=== PATIENT | female | born 1945 | race Caucasian/White ===

== ENCOUNTER 2024-09-28 14:09 | Inpatient (IN) | payer OTHER, SELFPAY ==
[2024-09-28 09:06] VITALS: BP 123/62
--- NOTE | 2024-09-28 09:36 | ED.GENMED ---
History of Present Illness
General
Chief Complaint: Cold/Flu/URI Symptoms
Source: patient and spouse
Exam Limitations: none
Time Seen by Provider: 09/28/24 09:23
History of Present Illness
History of Present Illness:
79-year-old female has been ill for months. Cough congestion and some wheezing at times. Initially placed on steroids and nebulizers with improvement however symptoms then recurred. Was placed on a cephalosporin through urgent care that did not
improve symptoms. Eventually placed on azithromycin after her primary talk to pulmonary. Outpatient x-ray apparently showed pneumonia on September 18. However symptoms have not improved. No significant progression of symptoms but no improvement.
No pleuritic pain no hemoptysis
Past History
Past History
ED Past Medical History: HTN and Other (Rheumatoid arthritis)
ED Past Surgical History: Appendectomy
Review of Systems
Review of Systems
All Other Systems: Not applicable
Constitutional: Reports fatigue; Denies fever or chills
Respiratory: Denies hemoptysis
Cardiac: Denies chest pain
ABD/GI: Denies abdominal pain
Phy Exam
Physical Exam
Physical Exam:
GENERAL: Alert and oriented in no apparent distress
EYE: Orbits normal.
NECK: Supple, no significant adenopathy.
ENT: Pharynx without erythema
CARDIAC: Regular rate and rhythm without any obvious murmurs.
LUNGS: No respiratory distress but bilateral dry rales in the bases with mild expiratory wheeze
ABDOMEN: Soft, without focal tenderness or distention
NEUROLOGICAL: Alert and oriented , grossly non-focal
SKIN: Warm and dry, no rash or lesion, no discoloration, skin intact.
MUSCULOSKELETAL: No edema,no deformity.Good color
PSYCH: Normal and appropriate interaction.
Course
Orders/Labs/Results
Orders:
Orders
09/28/24 09:10
CR Chest - 2 Views Urgent
Comment:
Reason For Exam: respiratory distress
09/28/24 09:34
Electrocardiogram (*1) Stat
Reason for Study: Other
Other Reason for Exam: chest pain
EKG- Treatment ONCE
IV Insert/Care/Rem.- Treatment PRN
09/28/24 09:58
COVID-19 Antigen Urgent
Source: Nasal Swab
Complete Blood Count/With Diff Urgent
Comprehensive Metabolic Panel Urgent
NT-proBNP Urgent
INF RAPID [Influenza A+B Rapid Molecular] Urgent
RAMÓN Source: Nasal Swab
Specimen Description:
09/28/24 11:50
Potassium Chloride 10% Elixir [KCl Elixir] 40 meq PO NOW STA
09/28/24 12:14
RSV [Respiratory Syncytial Virus] Urgent
RAMÓN Source: Nasalpharynx
Specimen Description:
Date Specimen was Collected: 09/28/24
Time Specimen was Collected: 12:12
09/28/24 12:45
IV Insert/Care/Rem.- Treatment PRN
Azithromycin 500 mg/250 ml [Zithromax Infusion] 500 mg in 250 ml IV NOW
CefTRIAXone [Rocephin] 1,000 mg IV NOW STA
09/28/24 13:22
Admit/Transfer Patient As Directed
Co-Sign Provider:
Level of Care: Inpatient admission
Assign to:: Medical/Surgical
Physician / Group: [facility]
Diagnosis: Multifocal Pneumonia
Reason for Hospitalization: IV abx
Expected length of stay greater than two midnights?: Yes
ELOS- Estimated Length of Stay in days: 3
I certify the patient meets the requirements for IP care: Yes
Legionella Urinary Antigen Urgent
RAMÓN Source: Urine
Specimen Description:
Strep pneumoniae Antigen Urgent
RAMÓN Source: Urine
Specimen Description:
PRN Pain Medication Management As Directed
May give lesser potent ordered pain med per pt: Yes
preference::
Protocol:: Medication orders for pain may be administered in a
manner that supports deferring to patient preference
when the pt is:
- Requesting an ordered lesser potent pain medication.
Least to most potent pain medications are defined
as: acetaminophen < NSAID < tramadol < opioids
(morphine, oxycodone, hydromorphone).
- Requesting a lesser dose of the same medication IF
ORDERED.
- Requesting a less intrusive route of administration
if both routes are prescribed by the provider (PO <
IV).
09/28/24 13:27
Code Status As Directed
Resuscitation Status: Full Code
09/28/24 13:29
MRSA Screen Routine
RAMÓN Source: Nose
Specimen Description:
Abnormal Lab Results
09/28/24
09:58
Hct 35.9 L %
(37.0-47.0)
Plt Count 458 H 10^3/uL
(130-400)
Absolute Neuts (auto) 7.7 H 10^3/uL
(1.4-6.5)
Absolute Lymphs (auto) 0.8 L 10^3/uL
(1.2-3.4)
Absolute Monos (auto) 1.5 H 10^3/uL
(0.1-0.6)
Neutrophils % 76.0 H %
(42.2-75.2)
Lymphocytes % 7.6 L %
(20.5-51.1)
Monocytes % 14.6 H %
(1.7-9.3)
Sodium 130 L mmol/L
(135-145)
Potassium 3.0 L mmol/L
(3.5-5.1)
Chloride 95 L mmol/L
(98-107)
Creatinine 0.5 L mg/dL
(0.6-1.0)
Glucose 116 H mg/dl
(70-99)
Calcium 7.6 L mg/dl
(8.4-10.2)
Total Protein 5.8 L g/dl
(6.3-8.2)
Albumin 3.3 L g/dl
(3.5-5.0)
09/28/24 09:58
09/28/24 09:58
Vital Signs
Initial and Last Documented VS:
Initial Vital Signs
Temp Pulse Resp BP Pulse Ox
100 F 92 18 123/62 95
09/28/24 09:06 09/28/24 09:06 09/28/24 09:06 09/28/24 09:06 09/28/24 09:06
Last Documented Vital Signs
Temp Pulse Resp BP Pulse Ox
98.4 F 82 18 149/80 93
09/28/24 13:25 09/28/24 13:25 09/28/24 13:25 09/28/24 13:25 09/28/24 13:25
MDM/Problems Addressed
Differential Diagnosis Includes:
79-year-old female ongoing upper respiratory symptoms. Clinically stable and nontoxic. She does have some rales in the bases although doubt primary CHF issues. Workup in [facility] progress included RSV COVID flu chest x-ray labs.
*Radiology
Radiology exam reviewed: preliminary read by ED provider (Multifocal pneumonia) and radiology read reviewed (Multifocal pneumonia)
*Pulse Oximetry
Patient hypoxic: no
*Critical Care Note
Total Time (30-74mins, 75-104mins- exclusive of procedures): Not Applicable
ED Attending Note
-
Portions of this chart may have been created with voice recognition software.� Occasional wrong word or��sound alike� substitutions may have occurred due to the inherent limitations of voice recognition software.
Discharge Plan
Departure
Patient Disposition: Admit
Date of Disposition: 09/28/24
Time of Disposition: 12:46
Presentation/result/management discussed w/ accepting MD/DO: Hospitalist
Discharge Problem:
Multifocal pneumonia, Failed outpatient management, Immunosuppressed
Interventions
Interventions:
*Risk Screen - Suicide Last Done: 09/28/24 09:06
*General Assessment Last Done: 09/28/24 10:04
*Neglect/Abuse Screening Last Done: 09/28/24 09:06
*ED COVID-19 Vaccine History Last Done: 09/28/24 10:04
ED- Pulmonary Assessment Last Done: 09/28/24 10:04
[2024-09-28 10:06] LABS: % Basophils 0.3 % (0-2); % Eosinophils 1.1 % (0-6); % Immature Granulocytes 0.4 % (0-0.5); % Lymphocytes 7.6 % (20.5-51.1); % Monocytes 14.6 % (1.7-9.3); Absolute Eosinophils 0.1 10^3/uL (0-0.7); Absolute Lymphocytes 0.8 10^3/uL (1.2-3.4); Absolute Monocytes 1.5 10^3/uL (0.1-0.6); Absolute Neutrophils 7.7 10^3/uL (1.4-6.5); Hematocrit 35.9 % (37.0-47.0); Hemoglobin 12.1 g/dL (12.0-16.0); Mean Corp Hgb Conc. 33.7 g/dL (33.0-37.0); Mean Corpuscular Hgb 27.4 pg (27.0-31.0); Mean Corpuscular Volume 81.4 fL (81.0-99.0); Mean Platelet Volume 8.7 fL (7.4-10.4); Nucleated Red Blood Cells % 0 %; Platelet Count 458 10^3/uL (130-400); Red Blood Cell Count 4.41 10^6/uL (4.20-5.40); Red Cell Dist. Width 13.6 % (11.5-14.5); White Blood Cell Count 10.1 10^3/uL (4.8-10.8)
[2024-09-28 10:23] LABS: ALT (SGPT) 17 U/L (0-35); AST (SGOT) 24 U/L (14-36); Albumin 3.3 g/dl (3.5-5.0); Alkaline Phosphatase 78 U/L (38-126); Blood Urea Nitrogen 9 mg/dl (7-17); Calcium 7.6 mg/dl (8.4-10.2); Carbon Dioxide 26 mmol/L (22-30); Chloride 95 mmol/L (98-107); Glucose 116 mg/dl (70-99); Sodium 130 mmol/L (135-145); Total Bilirubin 0.5 mg/dl (0.2-1.3); Total Protein 5.8 g/dl (6.3-8.2); eGFR > 60.00
[2024-09-28 10:24] LABS: COVID-19 Antigen Negative (Negative)
[2024-09-28 10:30] LABS: NT-proBNP 622 pg/ml
[2024-09-28] MEDS: KCL ELIXIR 40 MEQ PO (12:11)
--- NOTE | 2024-09-28 12:57 | HPS.HSE ---
Family Physician
-
Family Physician: Kimmie Hagen
Chief Complaint
-
Cough and Weakness
History of Present Illness
Patient is a 79-year-old female past medical history of rheumatoid arthritis, hypertension and lower extremity edema who presents with cough and generalized weakness/lethargy. Patient reports she started feeling poorly about 4 weeks ago. She notes
persistent dry cough. She reports persistent generalized weakness and lethargy, and very poor energy levels. Patient states she was given a Medrol Dosepak should help her symptoms for short time but then they recurred. She was given samples of
Trelegy which she states has helped her cough. She completed a course of azithromycin yesterday, but states this did not seem to help her symptoms. It appears she also took a few days course each of cephalexin and ciprofloxacin but stopped due to
adverse effects. She reports persistent low-grade fevers of around 100�F as well as night sweats.
Medical History
Past Medical History
Past Medical History: Reports Other
Additional Past Medical History:
Rheumatoid Arthritis
Essential Hypertension
Chronic Lower Extremity Edema
Past Surgical History: Reports Other
Additional Past Surgical History:
Appendectomy
Social History
Tobacco: Non-smoker
Alcohol: Occasional
Family History
Family History: Not pertinent
Allergies / Home Medications
Allergies reflects when Allergies were last updated in [facility].
Home Medications with original date entered in [facility]
Allergy/Medication List:
Allergies
Allergy/AdvReac Type Severity Reaction Status Date / Time
celecoxib [From Celebrex] Allergy Intermediate Shortness Verified 09/28/24 09:06
of Breath
diphenhydramine Allergy Unknown Verified 09/28/24 09:06
[From Benadryl]
Home Medications
amlodipine 5 mg tablet (Norvasc) 5 mg PO BID 09/28/24
ezetimibe 10 mg tablet (Zetia) 10 mg PO DAILY 09/28/24
fluticasone fur. 100 mcg-umeclid 62.5 mcg-vilant 25 mcg inhalat.powder (Trelegy Ellipta) 1 inh inhalation R DAILYPRN PRN sob 09/28/24
folic acid 1 mg tablet 2 mg PO DAILY 09/28/24
furosemide 20 mg tablet (Lasix) 40 mg PO DAILY 09/28/24
methotrexate sodium 2.5 mg tablet 10 mg PO MO 09/28/24
methylprednisolone 4 mg tablet 4 mg PO QPM 09/28/24
metoprolol succinate 25 mg tablet,extended release 24 hr (Toprol XL) 75 mg PO DAILY 09/28/24
omeprazole 20 mg tablet,delayed release 40 mg PO DAILY 09/28/24
Review of Systems
-
A 12 point ROS was completed and negative except as noted: Yes
Constitutional: Reports Fever, Fatigue and Night Sweats
Respiratory: Reports See HPI
Cardiac: Denies Chest Pain or Palpitations
Physical Exam
Vital Signs
Vital Signs
Temp Pulse Resp BP Pulse Ox
100 F 92 18 123/62 95
09/28/24 09:06 09/28/24 09:06 09/28/24 09:06 09/28/24 09:06 09/28/24 09:06
Physical Exam
General: Comfortable and Conversant
HEENT: Anicteric and Moist mucous membranes
Respiratory: Rales (Bilateral bases - Right greater than Left) and Other (Coarse breath sounds)
Cardiac: S1/S2 and Regular Rhythm
GI: Soft and Non Tender
Musculoskeletal: No Clubbing, No Cyanosis and Other (Chronic lower extremity edema, left greater than right which patient reports is chronic)
Skin: Warm and Dry
Neuro: Awake, Alert, Oriented and Nonfocal/grossly intact
Psych: Calm
Laboratory Results
-
09/28/24 09:58
09/28/24 09:58
Laboratory Results
Total Bilirubin 0.5 mg/dl (0.2-1.3) 09/28/24 09:58
AST 24 U/L (14-36) 09/28/24 09:58
ALT 17 U/L (0-35) 09/28/24 09:58
Alkaline Phosphatase 78 U/L (38-126) 09/28/24 09:58
Data Reviewed
-
Diagnostic Radiology: Report Reviewed by me
Lab Data: Labs Reviewed by me
Impression/Plan
-
Pertinent Cough / Weakness and Lethargy - possibly persistent multi-focal bacterial pneumonia vs interstitial pneumonitis
-Consult Pulmonary
-Continue ceftriaxone and doxycycline
-Continue Pulmicort BID and DuoNeb PRN as patient reports improvement with Trelegy as outpatient
-Continue Mucinex
-Check MRSA screen, Strep and Legionella antigen
Hyponatremia / Hypokalemia, likely related to poor oral intake
-Continue IVFs
-Replace potassium
-Recheck labs in AM
Rheumatoid Arthritis
-Continue methylprednisolone as prior to admission
-Patient maintained on methotrexate but as not taken for several weeks
Essential Hypertension
-Continue metoprolol and amlodipine with hold parameters
Chronic Lower Ext Edema
-Patient has not taken Lasix for several weeks
DVT proph: Lovenox
Code Status: Full Code
--- NOTE | 2024-09-28 13:10 | PHANOTE ---
med rec note- patient stated she takes her medication when she feels like it and how she feels, it has been months and she check her blood pressure before take Toprol xl dose.
[2024-09-28 13:25] VITALS: BP 149/80
[2024-09-28] MEDS: ROCEPHIN 1000 MG IV (13:33)
[2024-09-28] MEDS: ZITHROMAX INFUSION 250 IV (13:33)
--- NOTE | 2024-09-28 14:17 | W.PN.UPDATE ---
Update Note
Progress Note Update
79-year-old female past medical history of hypertension, rheumatoid arthritis on methotrexate, hyperlipidemia, chronic lower extremity edema presenting with cough, congestion and wheezing and fever since early September.� She was treated with Trelegy,
Medrol Dosepak, then azithromycin, and uncompleted short days of Keflex and Cipro due to diarrhea.
Chest x-ray shows diffuse interstitial opacification with superimposed patchy airspace opacities in the right mid and upper lung particularly.� Likely multifocal atypical pneumonia.
COVID and influenza and RSV negative.
Labs show hypokalemia.
Concern for persistent bacterial pneumonia, versus interstitial pneumonitis.� Treat with ceftriaxone/doxycycline.� Check strep antigen, Legionella.� Pulmonary consulted.� Could potentially benefit from further steroids.
Hypokalemia could be from recent diarrhea/decreased poor intake.�
Replete potassium.
[2024-09-28 18:54] VITALS: BMI 37.3
[2024-09-28 18:55] VITALS: BP 133/60; BMI 37.3
[2024-09-28] MEDS: DUONEB 3 ML INH (19:05)
[2024-09-28] MEDS: PULMICORT 0.5 MG INH (19:05)
[2024-09-28] MEDS: KCL 520 MEQ IV (20:32)
[2024-09-28] MEDS: MEDROL 4 MG PO (20:40)
[2024-09-28] MEDS: LOVENOX 40 MG SC (20:40)
[2024-09-28] MEDS: NORVASC 5 MG PO (20:41)
[2024-09-28] MEDS: MUCINEX 600 MG PO (20:41)
[2024-09-28] MEDS: VIBRAMYCIN 100 MG PO (20:42)
[2024-09-28] MEDS: TYLENOL 650 MG PO (22:57)
[2024-09-28] MEDS: ANESTHETIC LOZENGE 1 LOZENGE PO (22:57)
[2024-09-28 23:51] VITALS: BP 129/61
[2024-09-29] MEDS: PULMICORT 0.5 MG INH ×2 (05:59→20:45)
[2024-09-29 07:46] VITALS: BP 120/55
[2024-09-29 07:49] LABS: Hematocrit 36.6 % (37.0-47.0); Hemoglobin 12.2 g/dL (12.0-16.0); Mean Corp Hgb Conc. 33.3 g/dL (33.0-37.0); Mean Corpuscular Hgb 27.5 pg (27.0-31.0); Mean Corpuscular Volume 82.4 fL (81.0-99.0); Platelet Count 492 10^3/uL (130-400); Red Blood Cell Count 4.44 10^6/uL (4.20-5.40); Red Cell Dist. Width 13.9 % (11.5-14.5); White Blood Cell Count 8.8 10^3/uL (4.8-10.8)
[2024-09-29 08:14] LABS: Blood Urea Nitrogen 8 mg/dl (7-17); Calcium 8.2 mg/dl (8.4-10.2); Carbon Dioxide 25 mmol/L (22-30); Chloride 99 mmol/L (98-107); Estimated Creatinine Clearance 90 ml/min; Glucose 105 mg/dl (70-99); Potassium 4.3 mmol/L (3.5-5.1); Sodium 133 mmol/L (135-145); eGFR > 60.00
[2024-09-29 08:48] LABS: TSH Reflex To Free T4 0.51 uIU/ml (0.47-4.68)
[2024-09-29] MEDS: TOPROL XL 75 MG PO (08:55)
[2024-09-29] MEDS: FOLVITE 2 MG PO (08:56)
[2024-09-29] MEDS: VIBRAMYCIN 100 MG PO ×2 (08:56→20:52)
[2024-09-29] MEDS: MUCINEX 600 MG PO ×2 (08:56→20:53)
[2024-09-29] MEDS: PROTONIX 40 MG PO (08:56)
[2024-09-29] MEDS: ZETIA 10 MG PO (08:56)
[2024-09-29] MEDS: NORVASC 5 MG PO ×2 (08:56→20:53)
--- NOTE | 2024-09-29 09:58 | W.PN.HOSP.TC ---
Today's Communication/Plan
-
IV antibiotics. Steroids. Pulmonary eval
Assessment / Plan
Assessment / Plan
Physical Exam
General: Acutely ill
HEENT: Anicteric and Moist mucous membranes
Respiratory: Rales (Bilateral bases - Right greater than Left) and Other (Coarse breath sounds)
Cardiac: S1/S2 and Regular Rhythm
GI: Soft and Non Tender
Musculoskeletal: No Clubbing, No Cyanosis and Other (Chronic lower extremity edema, left greater than right which patient reports is chronic)
Skin: Warm and Dry
Neuro: Awake, Alert, Oriented and Nonfocal/grossly intact
Psych: Calm
A/P:
Pertinent Cough / Weakness and Lethargy - possibly persistent multi-focal bacterial pneumonia vs interstitial pneumonitis
-Consult Pulmonary pending
-Continue ceftriaxone and doxycycline
-Continue Pulmicort BID and DuoNeb PRN as patient reports improvement with Trelegy as outpatient
-Continue Mucinex
-Check MRSA screen, COVID-19, strep and Legionella antigen which were all negative
-Discussed with attending RN
-Discussed with primary care provider, Dr. Kimmie Hagen ([phone])
-Discussed with over the phone today
-PT OT eval
Hyponatremia / Hypokalemia, likely related to poor oral intake
-Continue IVFs
-Replace potassium
-Recheck labs in AM
Rheumatoid Arthritis
-Continue methylprednisolone as prior to admission
-Patient maintained on methotrexate but as not taken for several weeks
Essential Hypertension
-Continue metoprolol and amlodipine with hold parameters
Chronic Lower Ext Edema
-Patient has not taken Lasix for several weeks
DVT proph: Lovenox
Code Status: Full Code
Total time spent on today's encounter was 52 minutes which included time spent in counseling the patient/family regarding diagnosis and treatment plan as listed above, goals of care, and symptom management. Case was discussed with nursing staff,
specialists, and care coordinators/case management. All labs and imaging personally reviewed by me. Remainder the time spent in detailed review of previous records, lab data, imaging, and other medical provider documentation.
Anticipated Discharge: 24 - 48 hours
Subjective/Interval History
-
Date of Service: September 29, 2024
Patient feels better today, afebrile today
Objective Data
-
Labs:
Laboratory Results
09/29/24
06:29
WBC 8.8
Hgb 12.2
Hct 36.6 L
Plt Count 492 H
Sodium 133 L
Potassium 4.3 D
Chloride 99
Carbon Dioxide 25
BUN 8
Creatinine 0.4 L
Glucose 105 H
Calcium 8.2 L
Vital Signs:
Vital Signs
Temp Pulse Resp BP Pulse Ox
97.6 F 77 20 120/55 95
09/29/24 07:46 09/29/24 08:55 09/29/24 07:46 09/29/24 08:55 09/29/24 07:46
I&O
09/28/24 09/29/24 09/30/24
06:59 06:59 06:59
Intake Total 0 / 0
Output Total 400 / 400
Balance -400 / -400
[2024-09-29 11:14] VITALS: BMI 37.3
[2024-09-29 11:32] LABS: Glycohemoglobin (HgbA1c) 6.1 % (4.0-5.6)
[2024-09-29 12:25] VITALS: BMI 37.3
[2024-09-29 12:40] VITALS: BP 126/61; PULSE 72; O2SAT 95
[2024-09-29 12:58] VITALS: BP 126/61; PULSE 72; O2SAT 95
[2024-09-29] MEDS: STERILE WATER FOR INJECTION 10 ML IV (13:05)
[2024-09-29] MEDS: ROCEPHIN 1000 MG IV (13:06)
--- NOTE | 2024-09-29 15:16 | CON.PUL ---
Consultation
Consultation Request
Date/Time Consultation Requested: 09/29/2024
Date/Time Consultation Performed: 09/29/2024
Requesting Provider: Dr. Herrmann
Performing Provider: Dr. Keyshawn Duenas
Reason for Consultation: Multifocal pneumonia/hypoxemia
Medical History
-
History of Present Illness:
79-year-old female with past medical history significant for rheumatoid arthritis, hypertension, chronic lower extremity edema who presents with cough, generalized weakness and lethargy. Patient has been not feeling well for the last 4 weeks.
Reports a persistent cough and intermittent phlegm production.
Energy levels are significantly diminished. She feels fatigued all the time.
She was given steroids in the outpatient with partial improvement.
She was given an inhaler that helped her cough. Completed a course of azithromycin the day prior admission. Reports low-grade fevers and night sweats.
Chest x-ray showed possible multifocal pneumonia.
We were consulted on 09/29/2024 for further evaluation.
In further evaluation patient reports being on rituximab infusions every 3 to 4 months. Last 1 was in 05/2024. Methotrexate for many years currently on hold since she got sick. Also as needed Medrol that she takes on and off.
She reports being in contact with her granddaughter and grandson who had RSV before getting sick.
Evaluated with a chest x-ray on 09/18/2024 at [facility] and showed right upper lobe infiltrate. Completed a course of azithromycin.
Denies fevers, chills, rash, diarrhea or abdominal pain. Main complaint is feeling significantly fatigued.
Past Medical History
Past Medical History: Other (See assessment and plan)
Social History
Tobacco: Non-smoker
Alcohol: None
Drug: None
Family History
Family History: Reviewed & Not Pertinent
Allergies / Home Medications
Allergies
Allergy/AdvReac Type Severity Reaction Status Date / Time
celecoxib [From Celebrex] Allergy Shortness Verified 09/28/24 18:54
of Breath
diphenhydramine Allergy twitching Verified 09/28/24 18:54
[From Benadryl]
Home Medications
�Medication �Instructions �Recorded �Confirmed �Last Taken �Type
amlodipine 5 mg tablet (Norvasc) 5 mg PO BID Blood Pressure 09/28/24 09/28/24 09/27/24 History
ezetimibe 10 mg tablet (Zetia) 10 mg PO DAILY High Cholesterol 09/28/24 09/28/24 Unknown History
fluticasone fur. 100 mcg-umeclid 1 inh inhalation R DAILYPRN PRN sob 09/28/24 09/28/24 09/27/24 History
62.5 mcg-vilant 25 mcg
inhalat.powder (Trelegy Ellipta)
folic acid 1 mg tablet 2 mg PO DAILY Supplement 09/28/24 09/28/24 Unknown History
furosemide 20 mg tablet (Lasix) 40 mg PO DAILY Fluid 09/28/24 09/28/24 Unknown History
Retention/Swelling
methotrexate sodium 2.5 mg tablet 10 mg PO MO rheumatoid arthritis 09/28/24 09/28/24 09/07/24 History
methylprednisolone 4 mg tablet 4 mg PO QPM Anti-Inflammatory 09/28/24 09/28/24 30 Days Ago History
~08/29/24
metoprolol succinate 25 mg 75 mg PO DAILY Blood Pressure 09/28/24 09/28/24 09/27/24 History
tablet,extended release 24 hr 25 mg
(Toprol XL)
omeprazole 20 mg tablet,delayed 40 mg PO DAILY Gastrointestinal 09/28/24 09/28/24 09/27/24 History
release Issue
Review of Systems
-
History Source: Patient
All other systems: Negative unless noted
Vitals / Labs / Diagnostic Testing
Vital Signs
Temp Pulse Resp BP Pulse Ox
97.6 F 77 20 120/55 95
09/29/24 07:46 09/29/24 08:55 09/29/24 07:46 09/29/24 08:55 09/29/24 07:46
Lab Data
09/29/24 06:29
09/29/24 06:29
Microbiology
09/29/24 01:22 Urine Legionella Urinary Antigen - Final
Negative for Legionella pneumophila Serogroup 1 antigen.
A negative result does not rule out the possiblity of
Legionella infection due to other serogroups or species of
Legionella. Clinical correlation is recommended.
09/29/24 01:22 Urine Streptococcus pneumoniae Antigen (M - Final
Negative for Streptococcus pneumoniae antigen.
A negative result does not exclude infection with
Streptococcus pneumoniae. Clinical correlation is
recommended.
09/28/24 12:14 Nasalpharynx Respiratory Syncytial Virus Ag - Final
Negative for Respiratory Syncytial Virus.
A false negative result may be obtained with a specimen
collected early in the acute phase. If symptoms persist, a
new specimen should be tested.
09/28/24 09:58 Nasal Swab Influenza Types A & B (ELBA) - Final
Negative for Influenza A & B, NAAT
Negative results must be combined with clinical observations
and patient history.
Nucleic Acid Amplification test (NAAT)performed on the
[employer] platform.
Diagnostic Testing:
Physical Exam
-
HEENT: Normocephalic
Cardiovascular: S1/S2
Respiratory: Non-Labored Respirations
GI: Soft and Non Distended
Neurology: Awake, Alert, AO x 3 and No Motor Deficits
Skin: Warm
General: Comfortable
Assessment
-
79-year-old woman with past medical history noted, comes with 4-week history of lethargy cough, shortness of breath, not feeling well. Received steroids and a course of antibiotics with partial improvement. Symptoms were progressive.Not requiring
oxygen supplementation. Patient does report exposure to RSV from granddaughter and son-in-law prior to getting sick. We were consulted on 09/29/2024 for abnormal chest x-ray evaluation.
Acute respiratory insufficiency
Abnormal chest x-ray: Diffuse interstitial opacification with patchy airspace opacity more pronounced in the right mid and upper lung liu.
Normal proBNP
Negative COVID
Negative influenza, negative RSV
Negative Legionella and streptococcal antibody
Low-grade fevers-no leukocytosis
Hyponatremia
Conditions present prior admission:
Rheumatoid arthritis on methotrexate-
On methotrexate/Rituxan infusions last on 05/2024/taking as needed Medrol as needed throughout the years.
Chronic lower extremity edema
Hypertension
Obesity
Never smoker
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
Patient reports a subacute protracted course for the last 4 weeks. Exposure to RSV from granddaughter and son-in-law before getting sick.
Had an x-ray at [facility] 09/18/2024: Report reviewed from her phone and showed right upper lobe infiltrate which was new.
Her main complaint is feeling very fatigue and tired.
-
Completed a Medrol Dosepak and a course of azithromycin.
Did report some partial improvement with the steroids.
Main complaint is cough and significant fatigue.
Not requiring supplemental oxygen
Does not appear toxic, able to speak in full sentences
Lung exam with bilateral crackles [facility] up. Not bronchospastic.
Afebrile without leukocytosis
Not producing significant amount of sputum.
Microbiology evaluation so far is negative.
-
With history of rheumatoid arthritis-has been on methotrexate for some time but has not taken for several weeks rule out either opportunistic infection versus connective tissue disease associated pulmonary involvement.
Patient is on Rituxan, methotrexate that she has not been taking since she got sick. She also takes Medrol low-dose for years on as needed basis. She gets a dexamethasone infusion with every Rituxan infusion. Last Rituxan infusion was 05/2024.
-
Obtain CT chest without IV contrast
Will obtain sedimentation rate and CRP.
Obtain urinalysis rule out proteinuria.
So far there is no evidence for other organ involvement: Normal renal function, normal LFTs, no evidence for anemia .
Completing Medrol Dosepak that she was taking in the outpatient setting. Currently on low-dose Medrol for rheumatoid arthritis.
Methotrexate on hold
-
With significant fatigue and electrolyte abnormalities may need to consider iatrogenic adrenal insufficiency.
Will obtain a.m. cortisol-unclear how accurate this will be.
May need to consider given her higher doses of steroids if there is no improvement on her fatigue.
-
Continue current antibiotics for now
Follow cultures
-
Will follow
[2024-09-29 15:55] VITALS: BP 136/54
[2024-09-29 16:33] LABS: Erythrocyte Sed Rate 72 mm/hour (0-20)
[2024-09-29] MEDS: LOVENOX 40 MG SC (17:15)
[2024-09-29] MEDS: MEDROL 4 MG PO (17:15)
[2024-09-29] MEDS: ANESTHETIC LOZENGE 1 LOZENGE PO (20:53)
[2024-09-29] MEDS: TYLENOL 650 MG PO (20:53)
[2024-09-29 23:55] VITALS: BP 126/55
[2024-09-30 06:00] VITALS: BMI 37.0
[2024-09-30] MEDS: PULMICORT 0.5 MG INH ×2 (07:06→19:18)
[2024-09-30 07:30] VITALS: BP 140/57
[2024-09-30 07:32] LABS: % Basophils 0.2 % (0-2); % Eosinophils 0.4 % (0-6); % Immature Granulocytes 0.5 % (0-0.5); % Lymphocytes 11.9 % (20.5-51.1); % Monocytes 10.2 % (1.7-9.3); % Neutrophils 76.8 % (42.2-75.2); Absolute Immature Granulocytes 0.1 10^3/uL (0-0.05); Absolute Lymphocytes 1.1 10^3/uL (1.2-3.4); Absolute Neutrophils 7.2 10^3/uL (1.4-6.5); Hematocrit 36.4 % (37.0-47.0); Hemoglobin 11.9 g/dL (12.0-16.0); Mean Corp Hgb Conc. 32.7 g/dL (33.0-37.0); Mean Corpuscular Hgb 26.8 pg (27.0-31.0); Mean Platelet Volume 8.7 fL (7.4-10.4); Nucleated Red Blood Cells % 0 %; Platelet Count 512 10^3/uL (130-400); Red Blood Cell Count 4.44 10^6/uL (4.20-5.40); Red Cell Dist. Width 13.7 % (11.5-14.5); White Blood Cell Count 9.4 10^3/uL (4.8-10.8)
[2024-09-30 07:49] LABS: Blood Urea Nitrogen 8 mg/dl (7-17); Calcium 8.3 mg/dl (8.4-10.2); Carbon Dioxide 27 mmol/L (22-30); Chloride 97 mmol/L (98-107); Estimated Creatinine Clearance 90 ml/min; Glucose 91 mg/dl (70-99); Potassium 3.8 mmol/L (3.5-5.1); Sodium 134 mmol/L (135-145); eGFR > 60.00
[2024-09-30 08:20] LABS: Cortisol, Random 3.7 ug/dl
[2024-09-30] MEDS: PROTONIX 40 MG PO (08:49)
[2024-09-30] MEDS: NORVASC 5 MG PO ×2 (08:50→19:52)
[2024-09-30] MEDS: MUCINEX 600 MG PO ×2 (08:50→19:52)
[2024-09-30] MEDS: VIBRAMYCIN 100 MG PO ×2 (08:51→19:52)
[2024-09-30] MEDS: TOPROL XL 75 MG PO (08:51)
[2024-09-30] MEDS: ZETIA 10 MG PO (08:51)
--- NOTE | 2024-09-30 09:07 | W.PN.HOSP.TC ---
Today's Communication/Plan
-
IV steroids. IV antibiotics.
Assessment / Plan
Assessment / Plan
Physical Exam
General: Acutely ill
HEENT: Anicteric and Moist mucous membranes
Respiratory: Rales (Bilateral bases - Right greater than Left) and Other (Coarse breath sounds), no wheezes.
Cardiac: S1/S2 and Regular Rhythm
GI: Soft and Non Tender
Musculoskeletal: No Clubbing, No Cyanosis and Other (Chronic lower extremity edema, left greater than right which patient reports is chronic)
Skin: Warm and Dry
Neuro: Awake, Alert, Oriented and Nonfocal/grossly intact
Psych: Calm
A/P:
Acute hypoxic respiratory insufficiency:
Multifactorial etiology as below
Antibiotics
Steroids
Oxygen
Pulm consult appreciated-discussed with pulm today on 09/30
Discussed with at bedside today
Interstitial pneumonia, concerns for connective tissue disorder related and or CAP (community acquired pneumonia)-and if worsens might need to consider broaden to pseudomonas and other opportunistic organisms:
Cont Rocephin Doxy
Inflammatory markers elevated
Cont steroids but given low cortisol level start higher IV doses today
Follow culture
Follow WBC and Temp curve
Checking MICHAELA, ANCA antibody, complements, and UA per Pulm
Might need bronchoscopy
Adrenal insufficiency:
Cortisol level in the 3 range associated with fatigue and electrolytes abnormalities
Start stress doses IV steroids
Hyponatremia:
Likely related to decreased oral solute intake but could be related to adrenal insuf
Monitor trend
Hypokalemia:
Replace and trend
Rheumatoid arthritis:
On steroids
Has not been taking methotrexate or Rituxan infusions [employer]
HTN:
cont anti-htn meds
Hyperlipidemia:
Cont Zetia
Chronic LE edema:
Holding diuretics
Might consider echo and Doppler LE
DVT prophylaxis:
Lovenox SQ
Code status:
Full code
Total time spent on today's encounter was 52 minutes which included time spent in counseling the patient/family regarding diagnosis and treatment plan as listed above, goals of care, and symptom management. Case was discussed with nursing staff,
specialists, and care coordinators/case management. All labs and imaging personally reviewed by me. Remainder the time spent in detailed review of previous records, lab data, imaging, and other medical provider documentation.
Anticipated Discharge: > 48 hours
Subjective/Interval History
-
Date of Service: September 30, 2024
Patient remains very tired, still cough and sob.
Objective Data
-
Labs:
Laboratory Results
09/30/24
06:42
WBC 9.4
Hgb 11.9 L
Hct 36.4 L
Plt Count 512 H
Sodium 134 L
Potassium 3.8
Chloride 97 L
Carbon Dioxide 27
BUN 8
Creatinine 0.4 L
Glucose 91
Calcium 8.3 L
Vital Signs:
Vital Signs
Temp Pulse Resp BP Pulse Ox
100.0 F 82 20 126/55 95
09/30/24 07:30 09/30/24 08:51 09/30/24 07:30 09/30/24 08:51 09/30/24 07:30
I&O
09/29/24 09/30/24 10/01/24
06:59 06:59 06:59
Intake Total 0 / 0 780 / 780
Output Total 400 / 400
Balance -400 / -400 780 / 780
[2024-09-30] MEDS: FOLVITE 2 MG PO (10:25)
--- NOTE | 2024-09-30 10:25 | CM ---
SKYLER met with Sangeetha at bedside to complete IA. She lives with her in a 1st floor condo with 6 entry steps (3+2+1). MANAGER SOCIAL Sangeetha has been (I) with rollator and/or hurrycane. Electric scooter is used outside the home.
Household duties are shared between Sangeetha and her .
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
Plan: Watch for VN needs which are recommended by PT.
[2024-09-30] MEDS: ANESTHETIC LOZENGE 1 LOZENGE PO ×2 (11:07→19:53)
--- NOTE | 2024-09-30 12:39 | W.PN.PUL3 ---
Today's Communication / Plan
-
Start dexamethasone IV
Check MICHAELA, ANCA antibody, complements
Check UA
Continue to follow cultures
Pulmicort from symptomatic management of coughing
Continue antibiotics
Follow closely for signs and symptoms of infection.
Assessment
-
79-year-old woman with past medical history noted, comes with 4-week history of lethargy cough, shortness of breath, not feeling well. Received steroids and a course of antibiotics with partial improvement. Symptoms were progressive.Not requiring
oxygen supplementation. Patient does report exposure to RSV from granddaughter and son-in-law prior to getting sick. We were consulted on 09/29/2024 for abnormal chest x-ray evaluation.
Acute respiratory insufficiency
Abnormal chest x-ray: Diffuse interstitial opacification with patchy airspace opacity more pronounced in the right mid and upper lung liu.
Normal proBNP
Negative COVID
Negative influenza, negative RSV
Negative Legionella and streptococcal antibody
Low-grade fevers-no leukocytosis
Hyponatremia
Conditions present prior admission:
Rheumatoid arthritis on methotrexate-
On methotrexate/Rituxan infusions last on 05/2024/taking as needed Medrol as needed throughout the years.
Chronic lower extremity edema
Hypertension
Obesity
Never smoker
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
Patient reports a subacute protracted course for the last 4 weeks. Exposure to RSV from granddaughter and son-in-law before getting sick.
Had an x-ray at [facility] 09/18/2024: Report reviewed from her phone and showed right upper lobe infiltrate which was new.
Her main complaint is feeling very fatigue and tired.
-
Completed a Medrol Dosepak and a course of azithromycin.
Did report some partial improvement with the steroids.
Main complaint is cough and significant fatigue.
Not requiring supplemental oxygen
Does not appear toxic, able to speak in full sentences
Lung exam with bilateral crackles correction up. Not bronchospastic.
Afebrile without leukocytosis
Not producing significant amount of sputum.
Microbiology evaluation so far is negative.
-
Symptomatic management: Pulmicort nebulized twice a day
Mucolytics
DuoNebs as needed
-
With history of rheumatoid arthritis-has been on methotrexate for some time but has not taken for several weeks rule out either opportunistic infection versus connective tissue disease associated pulmonary involvement.
Patient is on Rituxan, methotrexate that she has not been taking since she got sick. She also takes Medrol low-dose for years on as needed basis. She gets a dexamethasone infusion with every Rituxan infusion. Last Rituxan infusion was 05/2024.
-
CT of the chest 09/30/2024: Reviewed, widespread bilateral patchy opacities, predominantly interstitial and groundglass, most prominent in the right upper lobe likely representing pneumonia/pneumonitis. 1 cm precarinal mediastinal lymph node likely
reactive.
-
CRP 162.
Sedimentation rate 72
Renal function normal
No leukocytosis. Thrombocytosis noted.
Normal LFTs
No evidence for synovitis or rash
-
Currently not on supplemental oxygen. Does not appear toxic.
-
Now with low-grade fevers. Cannot completely rule out infection. Sabine denies sputum production, hemoptysis or chills.
So far microbiology negative: Negative Legionella, negative for streptococcal antibody
MRSA screening negative
Respiratory syncytial virus negative
Negative influenza.
Negative COVID
Has not been able to produce sputum.
Will need to follow closely, if there is ongoing fevers then bronchoscopy with cultures plus or minus transbronchial biopsies will be needed, as the patient was on methotrexate up until 1 month ago and in addition last dose of Rituxan in May
2024.
-
Cannot rule out inflammatory pneumonitis from RA or others . Connective tissue disease associated ILD, cryptogenic pneumonia etc.
Patient follows up with rheumatology Dr. Tony Ortega.
Not typical for diffuse alveolar hemorrhage.
Recovering pneumonia also possibility as the patient has received antibiotics and Medrol Dosepak in the outpatient setting and the symptoms have been ongoing for 4 weeks.
-
Obtain complements
Obtain MICHAELA, double-stranded DNA
Anti-CCP
ANCA
Urinalysis to rule out proteinuria pending.
-
Completing Medrol Dosepak that she was taking in the outpatient setting. Currently on low-dose Medrol for rheumatoid arthritis.
Methotrexate on hold
-
With significant fatigue and electrolyte abnormalities may need to consider iatrogenic adrenal insufficiency.
A.m. cortisol 3.7-significantly decreased for current clinical situation. Suspect some degree of adrenal insufficiency.
-
Will start dexamethasone 4 mg IV every 8 hours and reassess. Close observation for signs of infection.
-
Continue current antibiotics for now-ceftriaxone/doxycycline.
Follow cultures
-
Will follow
Subjective Data
-
Date of Service:
Date of Service: September 30, 2024
Chief Complaint: Pulmonary Follow Up (Acute hypoxemic respiratory failure.)
Subjective:
Overall feels better since admission
Denies phlegm production
Denies hemoptysis
Denies fevers or chills.
Review of Systems
General: Fever (n)
Cardiopulmonary: Dyspnea (none at rest)
GI: Abdominal Pain (n), Nausea (n) and Vomiting
Neuro: Headache (n)
Objective Data
Data Reviewed
Vital Signs / I&O / Oxygen:
Vital Signs
Temp Pulse Resp BP Pulse Ox
100.0 F 89 20 126/55 95
09/30/24 07:30 09/30/24 08:51 09/30/24 07:30 09/30/24 08:51 09/30/24 07:30
Intake and Output
09/29/24 09/30/24 10/01/24
06:59 06:59 06:59
Intake Total 0 / 0 780 / 780
Output Total 400 / 400
Balance -400 / -400 780 / 780
SaO2 95
Physical Exam
General: Comfortable
HEENT: Normocephalic
Respiratory: Crackles
GI: Soft and Non Distended
Neurology: Awake, Alert, AO x 3 and No Motor Deficits
Skin: Warm
Labs/Micro/Reports
Lab Data
09/30/24 06:42
09/30/24 06:42
Microbiology
09/28/24 20:51 Nose MRSA Screen - Final
No Methicillin Resistant Staphylococcus aureus isolated.
09/29/24 01:22 Urine Legionella Urinary Antigen - Final
Negative for Legionella pneumophila Serogroup 1 antigen.
A negative result does not rule out the possiblity of
Legionella infection due to other serogroups or species of
Legionella. Clinical correlation is recommended.
09/29/24 01:22 Urine Streptococcus pneumoniae Antigen (M - Final
Negative for Streptococcus pneumoniae antigen.
A negative result does not exclude infection with
Streptococcus pneumoniae. Clinical correlation is
recommended.
09/28/24 12:14 Nasalpharynx Respiratory Syncytial Virus Ag - Final
Negative for Respiratory Syncytial Virus.
A false negative result may be obtained with a specimen
collected early in the acute phase. If symptoms persist, a
new specimen should be tested.
09/28/24 09:58 Nasal Swab Influenza Types A & B (ELBA) - Final
Negative for Influenza A & B, NAAT
Negative results must be combined with clinical observations
and patient history.
Nucleic Acid Amplification test (NAAT)performed on the
[employer] platform.
[2024-09-30] MEDS: TESSALON PERLES 100 MG PO ×2 (13:08→19:52)
[2024-09-30] MEDS: ROCEPHIN 1000 MG IV (13:45)
[2024-09-30] MEDS: STERILE WATER FOR INJECTION 10 ML IV (13:45)
[2024-09-30] MEDS: TYLENOL 650 MG PO (14:59)
[2024-09-30 15:08] VITALS: BP 133/54
[2024-09-30 15:42] LABS: Urine Albumin 1+ (Neg - Trace); Urine Bilirubin Negative (Negative); Urine Character Clear (Clear); Urine Color Yellow; Urine Glucose Negative (Negative); Urine Ketone Negative (Negative); Urine Leukocyte Negative (Negative); Urine Nitrite Negative (Negative); Urine Occult Blood Negative (Negative); Urine Urobilinogen Negative (Neg - 1+)
[2024-09-30 15:57] LABS: Urine Red Blood Cell 0-2 /HPF (0-2)
[2024-09-30 15:58] VITALS: BP 133/54; PULSE 86; O2SAT 96
[2024-09-30 15:58] LABS: Urine Bacteria Many (Negative); Urine White Cell 0-2 /HPF (0-5)
[2024-09-30] MEDS: DECADRON 4 MG IV ×2 (16:52→22:35)
[2024-09-30] MEDS: LOVENOX 40 MG SC (16:52)
[2024-09-30 23:55] VITALS: BP 122/55
[2024-10-01 00:05] LABS: Complement C3 173 mg/dl (88-165)
[2024-10-01] MEDS: DECADRON 4 MG IV ×4 (05:00→21:00)
[2024-10-01 06:00] VITALS: BMI 36.9
[2024-10-01 06:58] LABS: % Immature Granulocytes 0.6 % (0-0.5); % Lymphocytes 12.5 % (20.5-51.1); % Monocytes 2.5 % (1.7-9.3); % Neutrophils 84.4 % (42.2-75.2); Absolute Lymphocytes 0.7 10^3/uL (1.2-3.4); Absolute Monocytes 0.1 10^3/uL (0.1-0.6); Absolute Neutrophils 4.4 10^3/uL (1.4-6.5); Hematocrit 35.3 % (37.0-47.0); Hemoglobin 12.1 g/dL (12.0-16.0); Mean Corp Hgb Conc. 34.3 g/dL (33.0-37.0); Mean Corpuscular Hgb 27.8 pg (27.0-31.0); Mean Platelet Volume 8.8 fL (7.4-10.4); Nucleated Red Blood Cells % 0 %; Platelet Count 485 10^3/uL (130-400); Red Blood Cell Count 4.36 10^6/uL (4.20-5.40); Red Cell Dist. Width 13.5 % (11.5-14.5); White Blood Cell Count 5.2 10^3/uL (4.8-10.8)
[2024-10-01] MEDS: PULMICORT 0.5 MG INH ×2 (07:05→19:56)
[2024-10-01 07:11] VITALS: BP 131/53
[2024-10-01 07:25] LABS: Blood Urea Nitrogen 10 mg/dl (7-17); Calcium 8.8 mg/dl (8.4-10.2); Carbon Dioxide 27 mmol/L (22-30); Chloride 96 mmol/L (98-107); Estimated Creatinine Clearance 89 ml/min; Glucose 158 mg/dl (70-99); Potassium 3.7 mmol/L (3.5-5.1); Sodium 132 mmol/L (135-145); eGFR > 60.00
[2024-10-01 07:52] LABS: Procalcitonin < 0.05 ng/ml (0.0-0.25)
[2024-10-01] MEDS: FOLVITE 2 MG PO (08:34)
[2024-10-01] MEDS: MUCINEX 600 MG PO ×2 (08:35→20:54)
[2024-10-01] MEDS: TOPROL XL 75 MG PO (08:36)
[2024-10-01] MEDS: VIBRAMYCIN 100 MG PO ×2 (08:36→20:53)
[2024-10-01] MEDS: PROTONIX 40 MG PO (08:37)
[2024-10-01] MEDS: ZETIA 10 MG PO (08:37)
[2024-10-01] MEDS: NORVASC 5 MG PO ×2 (08:37→20:53)
[2024-10-01] MEDS: TESSALON PERLES 100 MG PO ×2 (08:44→20:53)
--- NOTE | 2024-10-01 09:02 | W.PN.HOSP.TC ---
Today's Communication/Plan
-
IV steroids. IV antibiotics
Assessment / Plan
Assessment / Plan
Physical Exam
General: Acutely ill
HEENT: Anicteric and Moist mucous membranes
Respiratory: Rales (Bilateral bases - Right greater than Left) and Other (Coarse breath sounds), no wheezes.
Cardiac: S1/S2 and Regular Rhythm
GI: Soft and Non Tender
Musculoskeletal: No Clubbing, No Cyanosis and Other (Chronic lower extremity edema, left greater than right which patient reports is chronic)
Skin: Warm and Dry
Neuro: Awake, Alert, Oriented and Nonfocal/grossly intact
Psych: Calm
A/P:
Acute hypoxic respiratory insufficiency:
Multifactorial etiology as below
Antibiotics
Steroids
Oxygen
Pulm consult appreciated-discussed with pulm on 09/30
Discussed with at bedside yesterday
Obtain echocardiogram and Doppler lower extremities
Interstitial pneumonia, concerns for connective tissue disorder related and or CAP (community acquired pneumonia)-and if worsens might need to consider broaden to pseudomonas and other opportunistic organisms:
Cont Rocephin Doxy
Inflammatory markers elevated
Cont steroids but given low cortisol level start higher IV doses yesterday
Follow culture
Follow WBC and Temp curve
Checking MICHAELA, ANCA antibody, complements, and UA per Pulm
Might need bronchoscopy
Adrenal insufficiency:
Cortisol level in the 3 range and associated with fatigue and electrolytes abnormalities
Started stress doses IV steroids
Hyponatremia:
Likely related to decreased oral solute intake but could be related to adrenal insuf
Monitor trend
Hypokalemia:
Replace and trend
Rheumatoid arthritis:
On steroids
Has not been taking methotrexate or Rituxan infusions [employer] WORK[employer]
HTN:
cont anti-htn meds
Hyperlipidemia:
Cont Zetia
Chronic LE edema:
Holding diuretics
Will do echo and Doppler LE
DVT prophylaxis:
Lovenox SQ
Code status:
Full code
Total time spent on today's encounter was 52 minutes which included time spent in counseling the patient/family regarding diagnosis and treatment plan as listed above, goals of care, and symptom management. Case was discussed with nursing staff,
specialists, and care coordinators/case management. All labs and imaging personally reviewed by me. Remainder the time spent in detailed review of previous records, lab data, imaging, and other medical provider documentation.
Anticipated Discharge: > 48 hours
Subjective/Interval History
-
Date of Service: October 01, 2024
Feels better overall today. Less cough and shortness of breath.
Objective Data
-
Labs:
Laboratory Results
10/01/24
06:46
WBC 5.2
Hgb 12.1
Hct 35.3 L
Plt Count 485 H
Sodium 132 L
Potassium 3.7
Chloride 96 L
Carbon Dioxide 27
BUN 10
Creatinine 0.4 L
Glucose 158 H
Calcium 8.8
Vital Signs:
Vital Signs
Temp Pulse Resp BP Pulse Ox
97.6 F 78 18 131/53 92
09/30/24 23:55 10/01/24 08:36 10/01/24 07:07 10/01/24 08:36 10/01/24 07:07
I&O
09/30/24 10/01/24 10/02/24
06:59 06:59 06:59
Intake Total 780 / 780 720 / 720
Balance 780 / 780 720 / 720
--- NOTE | 2024-10-01 13:17 | CM ---
Met with patient - IMM explained & signed. In chart
Discussed options VN - declines VN, not homebound
Patient states works from Home and goes to office once a week.
States has family support
PLAN: home, declines VN
to transport
[2024-10-01] MEDS: ROCEPHIN 1000 MG IV (13:33)
[2024-10-01] MEDS: STERILE WATER FOR INJECTION 10 ML IV (13:34)
--- NOTE | 2024-10-01 14:54 | W.PN.PUL3 ---
Today's Communication / Plan
-
Continue dexamethasone for at least another 24 to 48 hours without change
Continue to follow fever curve
Will repeat imaging chest x-ray on Saturday
Follow-up serology
Follow final cultures
Echocardiogram today
Assessment
-
79-year-old woman with past medical history noted, comes with 4-week history of lethargy cough, shortness of breath, not feeling well. Received steroids and a course of antibiotics with partial improvement. Symptoms were progressive.Not requiring
oxygen supplementation. Patient does report exposure to RSV from granddaughter and son-in-law prior to getting sick. We were consulted on 09/29/2024 for abnormal chest x-ray evaluation.
Acute respiratory insufficiency
Abnormal chest x-ray: Diffuse interstitial opacification with patchy airspace opacity more pronounced in the right mid and upper lung liu.
Normal proBNP
Negative COVID
Negative influenza, negative RSV
Negative Legionella and streptococcal antibody
Low-grade fevers-no leukocytosis
Hyponatremia
Conditions present prior admission:
Rheumatoid arthritis on methotrexate-
On methotrexate/Rituxan infusions last on 05/2024/taking as needed Medrol as needed throughout the years.
Chronic lower extremity edema
Hypertension
Obesity
Never smoker
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
Patient reports a subacute protracted course for the last 4 weeks. Exposure to RSV from granddaughter and son-in-law before getting sick.
Had an x-ray at [facility] 09/18/2024: Report reviewed from her phone and showed right upper lobe infiltrate which was new.
Her main complaint is feeling very fatigue and tired.
-
Completed a Medrol Dosepak and a course of azithromycin.
Did report some partial improvement with the steroids.
Main complaint is cough and significant fatigue.
-
She remains on room air since admission.
Minimal low-grade fever.
Does not appear toxic, able to speak in full sentences
Lung exam with bilateral crackles custodial up. Not bronchospastic.
Afebrile without leukocytosis
Not producing significant amount of sputum.
Microbiology evaluation so far is negative.
-
Symptomatic management:
Pulmicort nebulized twice a day
Mucolytics
DuoNebs as needed
-
With history of rheumatoid arthritis-has been on methotrexate for some time but has not taken for several weeks rule out either opportunistic infection versus connective tissue disease associated pulmonary involvement.
Patient is on Rituxan, methotrexate that she has not been taking since she got sick. She also takes Medrol low-dose for years on as needed basis. She gets a dexamethasone infusion with every Rituxan infusion. Last Rituxan infusion was 05/2024.
-
CT of the chest 09/30/2024: Reviewed, widespread bilateral patchy opacities, predominantly interstitial and groundglass, most prominent in the right upper lobe likely representing pneumonia/pneumonitis. 1 cm precarinal mediastinal lymph node likely
reactive.
-
CRP 162.
Sedimentation rate 72
Renal function normal
No leukocytosis. Thrombocytosis noted.
Normal LFTs
No evidence for synovitis or rash
-
Cannot completely rule out infection. Patiet denies sputum production, hemoptysis or chills.
So far microbiology negative: Negative Legionella, negative for streptococcal antibody
MRSA screening negative
Respiratory syncytial virus negative
Negative influenza.
Negative COVID
Has not been able to produce sputum.
Will need to follow closely, if there is ongoing fevers then bronchoscopy with cultures plus or minus transbronchial biopsies will be needed, as the patient was on methotrexate up until 1 month ago and in addition last dose of Rituxan in May
2024.
-
Cannot rule out inflammatory pneumonitis from RA or others given significant increase inflammation markers. Connective tissue disease associated ILD, cryptogenic pneumonia etc.
Patient follows up with rheumatology Dr. Tony Ortega.
Not typical for diffuse alveolar hemorrhage.
Recovering pneumonia also possibility as the patient has received antibiotics and Medrol Dosepak in the outpatient setting and the symptoms have been ongoing for 4 weeks.
-
Complements within normal limits.
Obtain MICHAELA, double-stranded DNA-pending
[id number]
ANCA-pending
Urine: With bacteria but without WBCs. Minimal albumin. Suspect contaminant. Will repeat in the future.
Echocardiogram to be obtained today 10/01/2024
-
Completing Medrol Dosepak that she was taking in the outpatient setting. Currently on low-dose Medrol for rheumatoid arthritis.
Methotrexate on hold
-
With significant fatigue and electrolyte abnormalities may need to consider iatrogenic adrenal insufficiency.
A.m. cortisol 3.7-significantly decreased for current clinical situation. Suspect some degree of adrenal insufficiency.
Will start dexamethasone 4 mg IV every 8 hours and reassess. Close observation for signs of infection.
-
Continue current antibiotics for now-ceftriaxone/doxycycline-consider transition to oral antibiotics in the next 24 to 48 hours.
Follow cultures
-
Will follow
Subjective Data
-
Date of Service:
Date of Service: October 01, 2024
Chief Complaint: Pulmonary Follow Up (Acute hypoxemic respiratory failure.)
Subjective:
No new complaints overnight
No significant phlegm production or hemoptysis
Review of Systems
Cardiopulmonary: Dyspnea (none at rest)
GI: Abdominal Pain (n), Nausea and Vomiting
Neuro: Headache (n)
Objective Data
Data Reviewed
Vital Signs / I&O / Oxygen:
Vital Signs
Temp Pulse Resp BP Pulse Ox
98.2 F 78 18 131/53 94
10/01/24 07:11 10/01/24 08:36 10/01/24 07:11 10/01/24 08:36 10/01/24 07:11
Intake and Output
09/30/24 10/01/24 10/02/24
06:59 06:59 06:59
Intake Total 780 / 780 720 / 720
Balance 780 / 780 720 / 720
SaO2 94
Physical Exam
General: Comfortable
HEENT: Normocephalic
Cardiovascular: S1-S2
Respiratory: Crackles
GI: Soft and Non Distended
Neurology: Awake, Alert, AO x 3 and No Motor Deficits
Skin: Warm
Labs/Micro/Reports
Lab Data
10/01/24 06:46
10/01/24 06:46
Microbiology
09/28/24 20:51 Nose MRSA Screen - Final
No Methicillin Resistant Staphylococcus aureus isolated.
09/29/24 01:22 Urine Legionella Urinary Antigen - Final
Negative for Legionella pneumophila Serogroup 1 antigen.
A negative result does not rule out the possiblity of
Legionella infection due to other serogroups or species of
Legionella. Clinical correlation is recommended.
09/29/24 01:22 Urine Streptococcus pneumoniae Antigen (M - Final
Negative for Streptococcus pneumoniae antigen.
A negative result does not exclude infection with
Streptococcus pneumoniae. Clinical correlation is
recommended.
09/28/24 12:14 Nasalpharynx Respiratory Syncytial Virus Ag - Final
Negative for Respiratory Syncytial Virus.
A false negative result may be obtained with a specimen
collected early in the acute phase. If symptoms persist, a
new specimen should be tested.
09/28/24 09:58 Nasal Swab Influenza Types A & B (ELBA) - Final
Negative for Influenza A & B, NAAT
Negative results must be combined with clinical observations
and patient history.
Nucleic Acid Amplification test (NAAT)performed on the
[employer] platform.
[2024-10-01 16:32] VITALS: BP 145/65
[2024-10-01] MEDS: LOVENOX 40 MG SC (17:04)
[2024-10-01 23:55] VITALS: BP 145/72
[2024-10-02] MEDS: DECADRON 4 MG IV ×4 (04:03→21:47)
[2024-10-02 06:00] VITALS: BMI 37.0
[2024-10-02] MEDS: DUONEB 3 ML INH (07:31)
[2024-10-02 07:32] VITALS: BP 132/64
[2024-10-02] MEDS: PULMICORT 0.5 MG INH ×2 (07:32→20:09)
[2024-10-02 08:00] LABS: Blood Urea Nitrogen 12 mg/dl (7-17); Carbon Dioxide 26 mmol/L (22-30); Chloride 96 mmol/L (98-107); Estimated Creatinine Clearance 89 ml/min; Glucose 141 mg/dl (70-99); Potassium 4.2 mmol/L (3.5-5.1); Sodium 134 mmol/L (135-145); eGFR > 60.00
[2024-10-02] MEDS: VIBRAMYCIN 100 MG PO ×2 (09:04→20:43)
[2024-10-02] MEDS: MUCINEX 600 MG PO ×2 (09:04→20:43)
[2024-10-02] MEDS: NORVASC 5 MG PO ×2 (09:04→20:43)
[2024-10-02] MEDS: ZETIA 10 MG PO (09:10)
[2024-10-02] MEDS: TOPROL XL 75 MG PO (09:10)
[2024-10-02] MEDS: PROTONIX 40 MG PO (09:10)
[2024-10-02] MEDS: FOLVITE 2 MG PO (09:10)
[2024-10-02] MEDS: TESSALON PERLES 100 MG PO ×2 (09:16→17:34)
--- NOTE | 2024-10-02 09:29 | W.PN.HOSP.TC ---
Today's Communication/Plan
-
IV antibiotics. IV steroids.
Assessment / Plan
Assessment / Plan
Physical Exam
General: Acutely ill
HEENT: Anicteric and Moist mucous membranes
Respiratory: Rales (Bilateral bases - Right greater than Left) and Other (Coarse breath sounds), no wheezes.
Cardiac: S1/S2 and Regular Rhythm
GI: Soft and Non Tender
Musculoskeletal: No Clubbing, No Cyanosis and Other (Chronic lower extremity edema, left greater than right which patient reports is chronic)
Skin: Warm and Dry
Neuro: Awake, Alert, Oriented and Nonfocal/grossly intact
Psych: Calm
A/P:
Acute hypoxic respiratory insufficiency:
Multifactorial etiology as below
Antibiotics
Steroids
Oxygen
Pulm consult appreciated-discussed with pulm prior
Discussed with at bedside prior
Obtained echocardiogram and Doppler lower extremities and they came back unremarkable.
Will restart her home doses of oral diuretics
Interstitial pneumonia, concerns for connective tissue disorder related and or CAP (community acquired pneumonia)-and if worsens might need to consider broaden to pseudomonas and other opportunistic organisms:
Cont Rocephin Doxy
Inflammatory markers elevated
On IV steroids--> we might be able to start tapering but we will wait for pulmonary input
Follow culture
Follow Temp curve
Checking MICHAELA, ANCA antibody, complements, and UA per Pulm
Might need bronchoscopy if not improving to that does not seem to be the case
Adrenal insufficiency:
Cortisol level in the 3 range and associated with fatigue and electrolytes abnormalities
Started stress doses IV steroids
Hyponatremia:
Likely related to decreased oral solute intake but could be related to adrenal insuf
Monitor trend
Hypokalemia:
Replace and trend
Rheumatoid arthritis:
On steroids
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
HTN:
cont anti-htn meds
Hyperlipidemia:
Cont Zetia
Chronic LE edema:
Holding diuretics
Will do echo and Doppler LE
DVT prophylaxis:
Lovenox SQ
Code status:
Full code
Anticipated Discharge: > 48 hours
Subjective/Interval History
-
Date of Service: October 02, 2024
Patient feels better overall. Less shortness of breath. Afebrile
Objective Data
-
Labs:
Laboratory Results
10/02/24
06:42
Sodium 134 L
Potassium 4.2
Chloride 96 L
Carbon Dioxide 26
BUN 12
Creatinine 0.4 L
Glucose 141 H
Calcium 9.0
Vital Signs:
Vital Signs
Temp Pulse Resp BP Pulse Ox
97.9 F 104 16 132/64 96
10/02/24 07:32 10/02/24 09:04 10/02/24 08:05 10/02/24 09:04 10/02/24 08:05
I&O
10/01/24 10/02/24 10/03/24
06:59 06:59 06:59
Intake Total 720 / 720 720 / 720
Balance 720 / 720 720 / 720
[2024-10-02] MEDS: LASIX 40 MG PO (10:09)
[2024-10-02] MEDS: ROCEPHIN 1000 MG IV (13:43)
[2024-10-02] MEDS: STERILE WATER FOR INJECTION 10 ML IV (13:44)
[2024-10-02 14:21] VITALS: PULSE 90; O2SAT 94
--- NOTE | 2024-10-02 15:06 | W.PN.PUL3 ---
Today's Communication / Plan
-
Continue IV dexamethasone without change
If continues to improve transition to oral prednisone 40 mg 1-10/2024 with a slow taper over the next 3 to 4 weeks.
Okay to use Pulmicort once or twice a day in the outpatient setting for coughing. She has a nebulizer at home.
-
I explained the patient that likely she will need a low dose on a daily basis to avoid adrenal insufficiency symptoms. She presented with severe fatigue.
Consider transition to oral antibiotics in the next 24 hours
Follow rheumatologic serology, can follow in the outpatient setting.
Methotrexate continues to be on hold, can restart after she sees her photolith operator
If continues to improve can consider discharge in the next 24 hours.
Follow-up information will be left in the chart
She will need a CAT scan about 6 to 8 weeks.
Assessment
-
79-year-old woman with past medical history noted, comes with 4-week history of lethargy cough, shortness of breath, not feeling well. Received steroids and a course of antibiotics with partial improvement. Symptoms were progressive.Not requiring
oxygen supplementation. Patient does report exposure to RSV from granddaughter and son-in-law prior to getting sick. We were consulted on 09/29/2024 for abnormal chest x-ray evaluation.
Acute respiratory insufficiency
Abnormal chest x-ray: Diffuse interstitial opacification with patchy airspace opacity more pronounced in the right mid and upper lung liu.
Normal proBNP
Negative COVID
Negative influenza, negative RSV
Negative Legionella and streptococcal antibody
Low-grade fevers-no leukocytosis
Hyponatremia
Conditions present prior admission:
Rheumatoid arthritis on methotrexate-
On methotrexate/Rituxan infusions last on 05/2024/taking as needed Medrol as needed throughout the years.
Chronic lower extremity edema
Hypertension
Obesity
Never smoker
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
Patient reports a subacute protracted course for the last 4 weeks. Exposure to RSV from granddaughter and son-in-law before getting sick.
Had an x-ray at [place] 09/18/2024: Report reviewed from her phone and showed right upper lobe infiltrate which was new.
Her main complaint is feeling very fatigue and tired.
Clinically improved 10/02/2024.
-
Completed a Medrol Dosepak and a course of azithromycin.
Did report some partial improvement with the steroids.
-
She remains on room air since admission.
Appears nontoxic
Minimal low-grade fever-now resolved.
Does not appear toxic, able to speak in full sentences
Lung exam with bilateral crackles nursing home up. Not bronchospastic.
No significant leukocytosis
Not producing significant amount of sputum.
Microbiology evaluation so far is negative.
-
Symptomatic management:
Pulmicort nebulized twice a day, for coughing. Can continue in the outpatient setting. She likes this medication. Her cough is improved. She has a nebulizer at home.
Mucolytics
DuoNebs as needed
-
With history of rheumatoid arthritis-has been on methotrexate for some time but has not taken for several weeks rule out either opportunistic infection versus connective tissue disease associated pulmonary involvement.
Patient is on Rituxan, methotrexate that she has not been taking since she got sick. She also takes Medrol low-dose for years on as needed basis. She gets a dexamethasone infusion with every Rituxan infusion. Last Rituxan infusion was 05/2024.
-
CT of the chest 09/30/2024: widespread bilateral patchy opacities, predominantly interstitial and groundglass, most prominent in the right upper lobe likely representing pneumonia/pneumonitis. 1 cm precarinal mediastinal lymph node likely reactive.
-
CRP 162.
Sedimentation rate 72
Renal function normal
No leukocytosis. Thrombocytosis noted.
Normal LFTs
No evidence for synovitis or rash
Normal complement levels
MICHAELA
Anti-CCP
ANCA pending.
Urine: With bacteria but without WBCs. Minimal albumin. Suspect contaminant. Will repeat in the future.
-
Cannot completely rule out active infection. Patiet denies sputum production, hemoptysis or chills.
So far microbiology negative: Negative Legionella, negative for streptococcal antibody
MRSA screening negative
Respiratory syncytial virus negative
Negative influenza.
Negative COVID
Has not been able to produce sputum.
Continue ceftriaxone/doxycycline. Okay to transition to oral antibiotics in the next 24 hours and complete total of 7 days.
Will need to follow closely, if there is ongoing fevers then bronchoscopy with cultures plus or minus transbronchial biopsies will be needed, as the patient was on methotrexate up until 1 month ago and in addition last dose of Rituxan in May
2024.
Methotrexate on hold-since early September as she was not feeling well from infection.
-
Cannot rule out inflammatory pneumonitis from RA or others given significant increase inflammation markers. Connective tissue disease associated ILD, cryptogenic pneumonia etc.
Patient follows up with rheumatology Dr. Tony Ortega.
Not typical for diffuse alveolar hemorrhage.
Now on IV dexamethasone as her cortisol level was under 5.
Can transition to oral prednisone tomorrow 4 mg with a slow taper. Over the next 3 to 4 weeks with close follow-up.
Repeat CT chest in about 6 to 8 weeks to document improvement/resolution
-
Recovering pneumonia also possibility as the patient has received antibiotics and Medrol Dosepak in the outpatient setting and the symptoms have been ongoing for 4 weeks.
-
Echocardiogram to be obtained today 10/01/2024
Normal LVEF. No significant valvular abnormalities. Mild RV dilatation with normal function. Mild pulmonary hypertension.
This could be either from underlying pulmonary issues or sleep apnea must be ruled out.
With follow-up with echocardiogram once her pulmonary issues are resolved.
---
With significant fatigue and electrolyte abnormalities may need to consider iatrogenic adrenal insufficiency.
A.m. cortisol 3.7-significantly decreased for current clinical situation. Suspect some degree of adrenal insufficiency.
Will start dexamethasone 4 mg IV every 8 hours and reassess. Close observation for signs of infection.
If continues to improve transition to prednisone 40mg on 09/03/2024 with a slow taper. Adrenal insufficient component may be addressed by her photolith operator in the outpatient setting.
-
-
Patient will need radiographic follow-up with CAT scans and further evaluation for her pulmonary infiltrates in the outpatient setting.
Information will be left in the chart to follow-up.
Patient advised to call my office with any change in symptoms fever, shortness of breath, hemoptysis etc.
Will follow

Data reviewed:
Echocardiogram 10/01/2024
Normal left ventricular chamber size. Hyperdynamic left ventricular systolic
function. Normal regional wall motion. Normal left ventricular wall thickness.
LV ejection fraction is 70-75% by Craig's method of discs. Normal diastolic
function.
Enlarged right ventricular size. Normal right ventricular systolic function.
Mitral valve opens normally. Thickened mitral valve leaflets especially noted
at tip of anterior mitral valve leaflet. Mild mitral regurgitation.
Trileaflet aortic valve. Thickened aortic valve with normal leaflet excursion.
Mild aortic regurgitation.
Mild tricuspid regurgitation. Estimated pulmonary artery pressure of 30-35
mmHg.
Subjective Data
-
Date of Service:
Date of Service: October 02, 2024
Chief Complaint: Pulmonary Follow Up (Acute hypoxemic respiratory failure.)
Subjective:
Patient offers no new complaints
Denies increased phlegm production or hemoptysis
Occasional coughing
Review of Systems
Cardiopulmonary: Dyspnea (n) and Cough
GI: Abdominal Pain (n) and Nausea (n)
Neuro: Headache (n)
Objective Data
Data Reviewed
Vital Signs / I&O / Oxygen:
Vital Signs
Temp Pulse Resp BP Pulse Ox
97.9 F 83 16 128/61 96
10/02/24 07:32 10/02/24 10:09 10/02/24 08:05 10/02/24 10:09 10/02/24 08:49
Intake and Output
10/01/24 10/02/24 10/03/24
06:59 06:59 06:59
Intake Total 720 / 720 720 / 720
Balance 720 / 720 720 / 720
SaO2 96
Physical Exam
General: Comfortable
HEENT: Normocephalic
Cardiovascular: S1-S2
Respiratory: Crackles
GI: Soft and Non Distended
Neurology: Awake, Alert, AO x 3 and No Motor Deficits
Skin: Warm
Labs/Micro/Reports
Lab Data
10/01/24 06:46
10/02/24 06:42
Microbiology
09/28/24 20:51 Nose MRSA Screen - Final
No Methicillin Resistant Staphylococcus aureus isolated.
[2024-10-02 15:17] VITALS: BP 134/62
[2024-10-02] MEDS: LOVENOX 40 MG SC (17:32)
[2024-10-02 20:45] LABS: ANA, IgG Reflex to HEp-2 None Detected (None Detected)
[2024-10-02 23:20] LABS: Myeloperoxidase Antibody 0 AU/mL (0-19); Serine Protease-3, IgG 0 AU/mL (0-19)
[2024-10-02 23:37] VITALS: BP 132/71
[2024-10-03 01:39] LABS: CCP Antibody IgG/IgA 164 Units (0-19)
[2024-10-03] MEDS: DECADRON 4 MG IV ×2 (03:41→10:54)
[2024-10-03] MEDS: ANESTHETIC LOZENGE 1 LOZENGE PO (03:49)
[2024-10-03 06:00] VITALS: BMI 37.3
[2024-10-03 07:26] LABS: Blood Urea Nitrogen 16 mg/dl (7-17); Calcium 8.8 mg/dl (8.4-10.2); Carbon Dioxide 28 mmol/L (22-30); Chloride 94 mmol/L (98-107); Estimated Creatinine Clearance 90 ml/min; Glucose 133 mg/dl (70-99); Potassium 3.9 mmol/L (3.5-5.1); Sodium 129 mmol/L (135-145); eGFR > 60.00
[2024-10-03 07:50] VITALS: BP 145/75
[2024-10-03] MEDS: PULMICORT 0.5 MG INH (08:18)
[2024-10-03] MEDS: FOLVITE 2 MG PO (08:37)
[2024-10-03] MEDS: LASIX 40 MG PO (08:38)
[2024-10-03] MEDS: MUCINEX 600 MG PO (08:38)
[2024-10-03] MEDS: TOPROL XL 75 MG PO (08:38)
[2024-10-03] MEDS: PROTONIX 40 MG PO (08:38)
[2024-10-03] MEDS: NORVASC 5 MG PO (08:38)
[2024-10-03] MEDS: FLUSH (NSS) 1 FLUSH IV (08:39)
[2024-10-03] MEDS: TESSALON PERLES 100 MG PO (08:39)
[2024-10-03] MEDS: VIBRAMYCIN 100 MG PO (08:39)
[2024-10-03] MEDS: ZETIA 10 MG PO (08:39)
--- NOTE | 2024-10-03 08:46 | W.PN.HOSP.TC ---
Today's Communication/Plan
-
Discharge today
Assessment / Plan
Assessment / Plan
Physical exam:
General: Well Developed, Well Nourished and No Apparent Distress
HEENT: Normocephalic, Atraumatic and Moist Mucous Membranes
Respiratory: Clear to Auscultation; Negative Wheezes, Rales or Rhonchi
Cardiac: Regular Rhythm and S1/S2
GI: Soft, Nontender and Nondistended
Musculoskeletal: No Clubbing, No Cyanosis and No Edema
Neuro: Awake, Alert and Oriented
Psych: Calm
A/P:
Acute hypoxic respiratory insufficiency:
Multifactorial etiology as below
Antibiotics
Steroids
Oxygen
Pulm consult appreciated-discussed with pulm prior
Discussed with at bedside prior
Obtained echocardiogram and Doppler lower extremities and they came back unremarkable.
Will restart her home doses of oral diuretics
Change IV steroids to oral. Discussed that she will need at least 4 weeks of steroids but will provide with 2 weeks first outpatient without tapering and she will need to follow-up with pulmonary as outpatient to complete the rest of the course and
at that time it will be tapered.
Interstitial pneumonia, concerns for connective tissue disorder related and or CAP (community acquired pneumonia)-and if worsens might need to consider broaden to pseudomonas and other opportunistic organisms:
Stop Rocephin Doxy
Inflammatory markers elevated
Change IV steroids to oral
Follow culture
Follow Temp curve
Checking MICHAELA, ANCA antibody, complements, and UA per Pulm
Might need bronchoscopy if not improving to that does not seem to be the case
Adrenal insufficiency:
Cortisol level in the 3 range and associated with fatigue and electrolytes abnormalities
Started stress doses IV steroids and now back to oral
Hyponatremia:
Likely related to decreased oral solute intake but could be related to adrenal insuf
Monitor trend
Hypokalemia:
Replace and trend
Rheumatoid arthritis:
On steroids
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
HTN:
cont anti-htn meds
Hyperlipidemia:
Cont Zetia
Chronic LE edema:
Holding diuretics
Will do echo and Doppler LE
DVT prophylaxis:
Lovenox SQ
Code status:
Full code
Anticipated Discharge: Today
Subjective/Interval History
-
Date of Service: October 03, 2024
Feels better overall.
Objective Data
-
Labs:
Laboratory Results
10/03/24
06:11
Sodium 129 L
Potassium 3.9
Chloride 94 L
Carbon Dioxide 28
BUN 16
Creatinine 0.4 L
Glucose 133 H
Calcium 8.8
Vital Signs:
Vital Signs
Temp Pulse Resp BP Pulse Ox
98.4 F 82 14 145/75 96
10/03/24 07:50 10/03/24 08:38 10/03/24 08:19 10/03/24 08:38 10/03/24 08:19
I&O
10/02/24 10/03/24 10/04/24
06:59 06:59 06:59
Intake Total 720 / 720 1160 / 1160
Balance 720 / 720 1160 / 1160
--- NOTE | 2024-10-03 12:03 | W.DCSUMMARY ---
Discharge Summary
Discharge Data
Date of Admission: 09/28/24
Date of Discharge: 10/03/24
-
Pending Results: No
Hospital Course
Patient 79 years old female with history of rheumatoid arthritis, hypertension, chronic lower extremity edema, came into the hospital with persistent cough and shortness of breath and found to be in respiratory insufficiency multifactorial etiology.
Pulmonary was consulted. She was treated with antibiotics for community-acquired pneumonia. She also was treated with IV steroids for possibility of inflammatory interstitial pneumonitis. Inflammatory markers were elevated but also she has not
taken her immunomodulators for her underlying collagen vascular disease. Patient improved throughout the hospital stay. We were able to switch her steroids to oral for a tapering course over the next 4 weeks (provided with initial 2 weeks). She
also completed her course of antibiotics while inpatient. Otherwise, patient is hemodynamically stable, afebrile, pulse ox normal, ambulating well, and she feels back close to her baseline. We will have her follow-up with rheumatology, pulmonary,
and PCP as outpatient. She will be discharged relatively stable condition today.
Discharge duration: 35 minutes
Discharge Plan
-
Patient Disposition: Home (Routine Discharge)
Discharge Diagnosis/Procedures: Pneumonia. Interstitial pneumonitis. Acute respiratory insufficiency. History of rheumatoid arthritis. Hyponatremia.
Diet: Low Cholesterol
Activity: As tolerated
Blood Work: Please PCP to order CBC, BMP within 1 week
Referrals:
Kimmie Hagen MD [Family Provider] - in less than 1 week
Keyshawn Walker MD [Active] - in two to three weeks (May see [facility] AGENT, PFT,6MWT)
Prescriptions:
New
prednisone 20 mg Tablet
40 mg PO DAILY 14 Days Qty: 28 0RF
Rx Instructions:
40 mg for 2 weeks then taper to 30 mg for 1 week and 20 mg for 1 week.
budesonide 0.5 mg/2 mL Suspension For Nebulization
0.5 mg inhalation R BID Qty: 60 0RF
benzonatate 100 mg Capsule
100 mg PO TIDPRN PRN (Reason: cough) 10 Days Qty: 30 0RF
Continued
amlodipine [Norvasc] 5 mg Tablet
5 mg PO BID
methotrexate sodium 2.5 mg Tablet
10 mg PO MO
folic acid 1 mg Tablet
2 mg PO DAILY
furosemide [Lasix] 20 mg Tablet
40 mg PO DAILY
metoprolol succinate [Toprol XL] 25 mg Tablet Extended Release 24 Hr
75 mg PO DAILY
ezetimibe [Zetia] 10 mg Tablet
10 mg PO DAILY
omeprazole 20 mg Tablet,Delayed Release (Dr/Ec)
40 mg PO DAILY
Trelegy Ellipta 100-62.5-25 mcg Blister With Device
1 inh INHALATION R DAILYPRN PRN (Reason: sob)
Patient Comments:
patient has free samples
Discontinued
methylprednisolone 4 mg Tablet
4 mg PO QPM
Discharge Orders:
Discharge Patient (As Directed); Ordered 10/03/24
Ordered By: Yao Pope
Discharge Date and Time
Discharge Date/Time: 10/03/24 16:19
Print Language: YORUBA
--- NOTE | 2024-10-03 14:08 | CM ---
Pt cleared for discharge to home, to transport
PLAN: Discharge to home with no identified needs.
[2024-10-03 14:26] VITALS: BP 132/68
--- NOTE | 2024-10-03 15:49 | W.PN.PUL3 ---
Today's Communication / Plan
-
Check ambulatory saturation
Discharged on budesonide twice a day, DuoNebs as needed. Patient already has nebulizer
Likely okay to discharge off antibiotics
Discharged on prednisone 40 mg a day, decrease by 10 mg every week
Will need to be seen in the pulmonary office in the next 3 to 4 weeks
Follow-up information left in chart
Assessment
-
79-year-old woman with past medical history noted, comes with 4-week history of lethargy cough, shortness of breath, not feeling well. Received steroids and a course of antibiotics with partial improvement. Symptoms were progressive.Not requiring
oxygen supplementation. Patient does report exposure to RSV from granddaughter and son-in-law prior to getting sick. We were consulted on 09/29/2024 for abnormal chest x-ray evaluation.
Acute respiratory insufficiency
Abnormal chest x-ray: Diffuse interstitial opacification with patchy airspace opacity more pronounced in the right mid and upper lung liu.
Normal proBNP
Negative COVID
Negative influenza, negative RSV
Negative Legionella and streptococcal antibody
Low-grade fevers-no leukocytosis
Hyponatremia
Conditions present prior admission:
Rheumatoid arthritis on methotrexate-
On methotrexate/Rituxan infusions last on 05/2024/taking as needed Medrol as needed throughout the years.
Chronic lower extremity edema
Hypertension
Obesity
Never smoker
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
Patient reports a subacute protracted course for the last 4 weeks. Exposure to RSV from granddaughter and son-in-law before getting sick.
Had an x-ray at [place] 09/18/2024: Report reviewed from her phone and showed right upper lobe infiltrate which was new.
Her main complaint is feeling very fatigue and tired.
Clinically improved 10/02/2024.
Ambulating to the bathroom without difficulty
-
Completed a Medrol Dosepak and a course of azithromycin.
Did report some partial improvement with the steroids.
-
She remains on room air since admission.
Appears nontoxic
Minimal low-grade fever-now resolved.
Does not appear toxic, able to speak in full sentences
Lung exam with bilateral crackles nursing home up. Seem improved, now only basilar
No significant leukocytosis
Not producing significant amount of sputum.
Microbiology evaluation so far is negative.
-
Symptomatic management:
Pulmicort nebulized twice a day, for coughing. Can continue in the outpatient setting. She likes this medication. Her cough is improved. She has a nebulizer at home.
Mucolytics
DuoNebs as needed
Please make sure DuoNebs and Pulmicort are written. She should be on Pulmicort twice a day, DuoNebs as needed
-
With history of rheumatoid arthritis-has been on methotrexate for some time but has not taken for several weeks rule out either opportunistic infection versus connective tissue disease associated pulmonary involvement.
Patient is on Rituxan, methotrexate that she has not been taking since she got sick. She also takes Medrol low-dose for years on as needed basis. She gets a dexamethasone infusion with every Rituxan infusion. Last Rituxan infusion was 05/2024.
-
CT of the chest 09/30/2024: widespread bilateral patchy opacities, predominantly interstitial and groundglass, most prominent in the right upper lobe likely representing pneumonia/pneumonitis. 1 cm precarinal mediastinal lymph node likely reactive.
-
CRP 162.
Sedimentation rate 72
Renal function normal
No leukocytosis. Thrombocytosis noted.
Normal LFTs
No evidence for synovitis or rash
Normal complement levels
MICHAELA
Anti-CCP
ANCA pending.
Urine: With bacteria but without WBCs. Minimal albumin. Suspect contaminant. Will repeat in the future.
-
Cannot completely rule out active infection. Patiet denies sputum production, hemoptysis or chills.
So far microbiology negative: Negative Legionella, negative for streptococcal antibody
MRSA screening negative
Respiratory syncytial virus negative
Negative influenza.
Negative COVID
Has not been able to produce sputum.
Patient received few days of ceftriaxone/doxycycline, now discontinued
Last fever 09/30
Will need to follow closely, if there is ongoing fevers then bronchoscopy with cultures plus or minus transbronchial biopsies will be needed, as the patient was on methotrexate up until 1 month ago and in addition last dose of Rituxan in May
2024.
Methotrexate on hold-since early September as she was not feeling well from infection.
-
Cannot rule out inflammatory pneumonitis from RA or others given significant increase inflammation markers. Connective tissue disease associated ILD, cryptogenic pneumonia etc.
Patient follows up with rheumatology Dr. Tony Ortega.
Not typical for diffuse alveolar hemorrhage.
Now on IV dexamethasone as her cortisol level was under 5.
Transition to 40 mg of prednisone, would continue slow taper over the next 3 to 4 weeks, i.e. 10 mg every week
Repeat CT chest in about 6 to 8 weeks to document improvement/resolution
-
Recovering pneumonia also possibility as the patient has received antibiotics and Medrol Dosepak in the outpatient setting and the symptoms have been ongoing for 4 weeks.
-
Echocardiogram to be obtained today 10/01/2024
Normal LVEF. No significant valvular abnormalities. Mild RV dilatation with normal function. Mild pulmonary hypertension.
This could be either from underlying pulmonary issues or sleep apnea must be ruled out.
With follow-up with echocardiogram once her pulmonary issues are resolved.
---
With significant fatigue and electrolyte abnormalities may need to consider iatrogenic adrenal insufficiency.
A.m. cortisol 3.7-significantly decreased for current clinical situation. Suspect some degree of adrenal insufficiency.
Improved, continue with prednisone, slow taper by 10 mg every week. She will need to be seen by pulmonary in the short-term
-
Patient will need radiographic follow-up with CAT scans and further evaluation for her pulmonary infiltrates in the outpatient setting.
Information will be left in the chart to follow-up.
Patient advised to call my office with any change in symptoms fever, shortness of breath, hemoptysis etc.
Will follow

Data reviewed:
Echocardiogram 10/01/2024
Normal left ventricular chamber size. Hyperdynamic left ventricular systolic
function. Normal regional wall motion. Normal left ventricular wall thickness.
LV ejection fraction is 70-75% by Craig's method of discs. Normal diastolic
function.
Enlarged right ventricular size. Normal right ventricular systolic function.
Mitral valve opens normally. Thickened mitral valve leaflets especially noted
at tip of anterior mitral valve leaflet. Mild mitral regurgitation.
Trileaflet aortic valve. Thickened aortic valve with normal leaflet excursion.
Mild aortic regurgitation.
Mild tricuspid regurgitation. Estimated pulmonary artery pressure of 30-35
mmHg.
Subjective Data
-
Date of Service:
Date of Service: October 03, 2024
Chief Complaint: Pulmonary Follow Up (Acute hypoxemic respiratory failure.)
Subjective:
Patient seen and examined earlier this morning, late entry. Patient feels symptoms have improved. Describes dry cough, nonproductive, no blood denies chest pain. Ambulating to the bathroom without difficulty
Objective Data
Data Reviewed
Vital Signs / I&O / Oxygen:
Vital Signs
Temp Pulse Resp BP Pulse Ox
98.3 F 80 18 132/68 94
10/03/24 14:26 10/03/24 14:26 10/03/24 14:26 10/03/24 14:26 10/03/24 14:26
Intake and Output
10/02/24 10/03/24 10/04/24
06:59 06:59 06:59
Intake Total 720 / 720 1160 / 1160
Balance 720 / 720 1160 / 1160
SaO2 94
Physical Exam
General: Comfortable
HEENT: Normocephalic
Cardiovascular: S1-S2
Respiratory: Crackles (Few bibasilar crackles)
GI: Soft and Non Distended
Neurology: Awake, Alert, AO x 3 and No Motor Deficits
Skin: Warm and Cyanosis (n)
Labs/Micro/Reports
Lab Data
10/01/24 06:46
10/03/24 06:11
== END 2024-10-03 16:19 | disposition home or self-care (01) | DRG 196 ==
LOC: 4 EAST ACU 14:09
PROVIDERS: Physician Assistant Medical; Student in an Organized Health Care Education/Training Program; ADMITTING PHYSICIAN Hospitalist; ATTENDING PHYSICIAN Hospitalist; CONSULT PHYSICIAN Internal Medicine Critical Care Medicine; EMERGENCY PHYSICIAN Emergency Medicine; FAMILY PHYSICIAN Family Medicine
DX: J84.89 Other specified interstitial pulmonary diseases (principal); J18.9 Pneumonia, unspecified organism; E87.1 Hypo-osmolality and hyponatremia; D84.821 Immunodeficiency due to drugs; E27.40 Unspecified adrenocortical insufficiency; E87.6 Hypokalemia; M06.9 Rheumatoid arthritis, unspecified; I10 Essential (primary) hypertension; R60.0 Localized edema; R09.02 Hypoxemia; E66.9 Obesity, unspecified; Z68.37 Body mass index [BMI] 37.0-37.9, adult; Z79.631 Long term (current) use of antimetabolite agent
CPT/HCPCS: 71046; 71250; 80048; 80053; 81003; 81015; 82533; 83036; 83516; 83735; 83880; 84145; 84443; 85025; 85027; 85652; 86038; 86140; 86160; 86200; 87070; 87449; 87502; 87807; 87811; 87899; 93005; 93306; 93970; 94640; 97116; 97162; 97166; 99285

== ENCOUNTER 2024-10-06 14:33 | Inpatient (IN) | payer OTHER, SELFPAY ==
[2024-10-06] VITALS (14 sets, daily range): BP systolic 115–151; BP diastolic 56–85; BMI 38.9; BMI 37.4
--- NOTE | 2024-10-06 10:21 | ED.GENMED ---
History of Present Illness
General
Chief Complaint: Breathing Problem
Source: patient
Exam Limitations: none
Time Seen by Provider: 10/06/24 10:04
History of Present Illness
History of Present Illness:
79-year-old female presents for reevaluation. She was discharged from this hospital couple days ago for pneumonia. She has a history of rheumatoid arthritis. She is on Rituxan. She notes increased fatigue and cough since discharge. She also
notes shortness of breath. Not typically on oxygen.
Past History
Past History
ED Past Medical History: HTN and Other (Rheumatoid arthritis)
ED Past Surgical History: Appendectomy
Phy Exam
Physical Exam
Physical Exam:
General: Well-developed female with increased work of breathing
HEENT: Normocephalic atraumatic
Heart: Regular rate and rhythm
Lungs: Coarse bilaterally
Abdomen is soft nontender
Extremities: No cyanosis or edema
Skin warm no rash
Scores
Heart Failure Risk
Heart Failure Risk Score: Not Applicable
Course
Orders/Labs/Results
Orders:
Orders
10/06/24 10:03
Electrocardiogram (*1) Urgent
Reason for Study: Shortness of Breath
10/06/24 10:04
EKG- Treatment ONCE
10/06/24 10:06
CMP [Comprehensive Metabolic Panel] Urgent
Complete Blood Count/With Diff Urgent
Troponin I Urgent
10/06/24 10:20
Acetaminophen [Tylenol] 650 mg PO NOW STA
Ipratropium/Albuterol Sulfate [Duoneb] 3 ml INH R NOW STA
10/06/24 10:21
CR Chest - 2 Views Urgent
Comment:
Reason For Exam: cough, fever
10/06/24 11:02
COVID-19 Antigen Urgent
Source: Nasal Swab
Influenza A+B Rapid Molecular Urgent
RAMÓN Source: Nasal Swab
Specimen Description:
Respiratory Syncytial Virus Urgent
RAMÓN Source: Nasal Swab
Specimen Description:
Date Specimen was Collected: 10/06/24
Time Specimen was Collected: 10:51
Abnormal Lab Results
10/06/24 10/06/24
10:06 11:02
WBC 18.7 H 10^3/uL
(4.8-10.8)
Hgb 11.7 L g/dL
(12.0-16.0)
Hct 34.2 L %
(37.0-47.0)
MCV 79.4 L fL
(81.0-99.0)
Abs Immat Gran (auto) 0.2 H 10^3/uL
(0-0.05)
Absolute Neuts (auto) 16.9 H 10^3/uL
(1.4-6.5)
Absolute Lymphs (auto) 0.4 L 10^3/uL
(1.2-3.4)
Absolute Monos (auto) 1.2 H 10^3/uL
(0.1-0.6)
Immature Gran % 1.0 H %
(0-0.5)
Neutrophils % 90.5 H %
(42.2-75.2)
Lymphocytes % 2.0 L %
(20.5-51.1)
Sodium 125 L mmol/L
(135-145)
Chloride 89 L mmol/L
(98-107)
Creatinine 0.4 L mg/dL
(0.6-1.0)
Glucose 133 H mg/dl
(70-99)
Calcium 7.6 L mg/dl
(8.4-10.2)
AST 50 H U/L
(14-36)
SARS-CoV-2 Antigen Positive A
(Negative)
10/06/24 10:06
10/06/24 10:06
Vital Signs
Initial and Last Documented VS:
Initial Vital Signs
Temp Pulse Resp BP Pulse Ox
100.9 F H 98 18 123/56 88
10/06/24 09:57 10/06/24 09:57 10/06/24 09:57 10/06/24 09:57 10/06/24 09:57
Last Documented Vital Signs
Temp Pulse Resp BP Pulse Ox
100.9 F H 95 23 130/57 92
10/06/24 09:57 10/06/24 11:00 10/06/24 11:00 10/06/24 11:00 10/06/24 11:00
MDM/Problems Addressed
Differential Diagnosis Includes:
Fever with increased work of breathing. Recent diagnosis of pneumonia she is hypoxic on arrival requiring now 5 L of nasal oxygen. Current O2 saturation is 91%. Lungs are coarse bilaterally. Question recurrent pneumonia versus bronchitis versus
flu. Does not appear volume overloaded.
Will repeat chest x-ray try DuoNeb and support her oxygen requirement COVID flu and RSV tests are pending
*Critical Care Note
Total Time (30-74mins, 75-104mins- exclusive of procedures): Not Applicable
Update Note
Update Note:
Patient tested positive for COVID. Patient requiring 5 L of oxygen. Will admit to hospital for hypoxia in the COVID setting
ED Attending Note
-
Portions of this chart may have been created with voice recognition software.� Occasional wrong word or��sound alike� substitutions may have occurred due to the inherent limitations of voice recognition software.
Discharge Plan
Departure
Patient Disposition: Admit
Date of Disposition: 10/06/24
Time of Disposition: 11:46
Presentation/result/management discussed w/ accepting MD/DO: Hospitalist
Patient with high blood pressure during this ER visit?: No
Discharge Problem:
Hypoxia, COVID-19
Prescriptions:
No Action
amlodipine [Norvasc] 5 mg Tablet
5 mg PO BID
methotrexate sodium 2.5 mg Tablet
10 mg PO MO
folic acid 1 mg Tablet
2 mg PO DAILY
furosemide [Lasix] 20 mg Tablet
40 mg PO DAILY
metoprolol succinate [Toprol XL] 25 mg Tablet Extended Release 24 Hr
75 mg PO DAILY
ezetimibe [Zetia] 10 mg Tablet
10 mg PO DAILY
omeprazole 20 mg Tablet,Delayed Release (Dr/Ec)
40 mg PO DAILY
Trelegy Ellipta 100-62.5-25 mcg Blister With Device
1 inh INHALATION R DAILYPRN PRN (Reason: sob)
Patient Comments:
patient has free samples
prednisone 20 mg Tablet
40 mg PO DAILY 14 Days Qty: 28 0RF
Rx Instructions:
40 mg for 2 weeks then taper to 30 mg for 1 week and 20 mg for 1 week.
budesonide 0.5 mg/2 mL Suspension For Nebulization
0.5 mg inhalation R BID Qty: 60 0RF
benzonatate 100 mg Capsule
100 mg PO TIDPRN PRN (Reason: cough) 10 Days Qty: 30 0RF
Referrals:
Kimmie Hagen MD [Family Provider] -
Interventions
Interventions:
*Risk Screen - Suicide Last Done: 10/06/24 09:57
*General Assessment Last Done: 10/06/24 09:57
*Neglect/Abuse Screening Last Done: 10/06/24 09:57
ED- Fall Risk Assessment Last Done: 10/06/24 09:57
*ED COVID-19 Vaccine History Last Done: 10/06/24 09:57
ED- Cardiac Assessment Last Done: 10/06/24 09:57
ED- Pulmonary Assessment Last Done: 10/06/24 09:57
Discharge Date and Time
Print Language: EGYPTIAN
[2024-10-06 10:24] LABS: % Basophils 0.2 % (0-2); % Monocytes 6.3 % (1.7-9.3); % Neutrophils 90.5 % (42.2-75.2); Absolute Immature Granulocytes 0.2 10^3/uL (0-0.05); Absolute Lymphocytes 0.4 10^3/uL (1.2-3.4); Absolute Monocytes 1.2 10^3/uL (0.1-0.6); Absolute Neutrophils 16.9 10^3/uL (1.4-6.5); Hematocrit 34.2 % (37.0-47.0); Hemoglobin 11.7 g/dL (12.0-16.0); Mean Corp Hgb Conc. 34.2 g/dL (33.0-37.0); Mean Corpuscular Hgb 27.1 pg (27.0-31.0); Mean Corpuscular Volume 79.4 fL (81.0-99.0); Mean Platelet Volume 9.2 fL (7.4-10.4); Nucleated Red Blood Cells % 0 %; Platelet Count 393 10^3/uL (130-400); Red Blood Cell Count 4.31 10^6/uL (4.20-5.40); Red Cell Dist. Width 13.8 % (11.5-14.5); White Blood Cell Count 18.7 10^3/uL (4.8-10.8)
[2024-10-06 10:44] LABS: ALT (SGPT) 33 U/L (0-35); AST (SGOT) 50 U/L (14-36); Albumin 3.7 g/dl (3.5-5.0); Alkaline Phosphatase 65 U/L (38-126); Blood Urea Nitrogen 15 mg/dl (7-17); Calcium 7.6 mg/dl (8.4-10.2); Carbon Dioxide 25 mmol/L (22-30); Chloride 89 mmol/L (98-107); Estimated Creatinine Clearance 89 ml/min; Glucose 133 mg/dl (70-99); Potassium 3.6 mmol/L (3.5-5.1); Sodium 125 mmol/L (135-145); Total Bilirubin 0.8 mg/dl (0.2-1.3); Total Protein 6.5 g/dl (6.3-8.2); eGFR > 60.00
[2024-10-06 10:50] LABS: Troponin I 0.028 ng/ml
[2024-10-06] MEDS: DUONEB 3 ML INH (10:59)
[2024-10-06] MEDS: TYLENOL 650 MG PO (10:59)
[2024-10-06 11:19] LABS: COVID-19 Antigen Positive (Negative)
--- NOTE | 2024-10-06 12:18 | HPS.HSE ---
Addendum entered and electronically signed by Dilcia Rome DO 10/06/24 14:42:
The patient is seen and examined. I have reviewed the patient at length with Linda LIVE, and I agree with her history and physical, assessment and plan of care as per below, with the following updates/additions:
The patient had improvement in O2 with mid-flow oxygen in the ED, up to 97% on mid-flow. She is weak, fatigued, and has cough with white sputum production.
Vitals reviewed, 97% O2 on mid-flow oxygen
Temp Pulse Resp BP Pulse Ox
100.9 F H 95 23 130/57 92
10/06/24 09:57 10/06/24 11:00 10/06/24 11:00 10/06/24 11:00 10/06/24 11:00
PE:
Lungs: bibasilar rales, on mid-flow oxygen
CV: RRR, no m/r/g
Neuro: genearlized weakness, no focal deficits
Labs and images reviewed
I agree with the detailed assessment and plan of care as per below, which were reviewed along with the orders, with Linda LIVE
IMU admission
Pulmonary consultation is appreciated
Original Note:
Family Physician
-
Family Physician: Kimmie Hgaen
Chief Complaint
-
Dry cough, fever, chills
History of Present Illness
79-year-old female who reports ongoing dry cough starting 4 weeks ago end of August she was treated with a Medrol Dosepak by her PCP then improved for a few days she then had symptoms of earache with sinus congestion went to urgent care and was
prescribed an antibiotic however did not improve she had persistent shortness of breath decreased appetite weakness dry cough she then was admitted to the hospital on 09/28 - 10/03/2024 at that time she tested negative for flu and COVID she was treated
for pneumonia with IV Rocephin and doxycycline then switched to an oral course of Zithromax which she completed she was on IV steroids transition to a Medrol dose pack with pulmonary wanting her not to taper until after the first 2 weeks. She
reports she went home on October 03 she felt okay for the first day her cough had gone away for approximately 2 to 3 days. Then yesterday she started with chills dry cough and today was 83% on her pulse oximetry at home which prompted her to come
to the emergency room for evaluation given she has rheumatoid arthritis is immune compromised on Rituxan. Other past medical history includes hypertension, chronic lower extremity edema, adrenal insufficiency
Medical History
Past Medical History
Past Medical History: Reports Other
Additional Past Medical History:
Rheumatoid Arthritis
Essential Hypertension
Chronic Lower Extremity Edema
Past Surgical History: Reports Other
Additional Past Surgical History:
Appendectomy
Social History
Tobacco: Non-smoker
Alcohol: Occasional
Drug: None
Personal:
Living: With Family ( Bi)
Employment: Retired
Family History
Family History: Not pertinent
Allergies / Home Medications
Allergies reflects when Allergies were last updated in [facility].
Home Medications with original date entered in [facility]
Allergy/Medication List:
Allergies
Allergy/AdvReac Type Severity Reaction Status Date / Time
celecoxib [From Celebrex] Allergy Shortness Verified 09/28/24 18:54
of Breath
diphenhydramine Allergy twitching Verified 09/28/24 18:54
[From Benadryl]
Home Medications
amlodipine 5 mg tablet (Norvasc) 5 mg PO BID Blood Pressure 09/28/24
ezetimibe 10 mg tablet (Zetia) 10 mg PO DAILY High Cholesterol 09/28/24
fluticasone fur. 100 mcg-umeclid 62.5 mcg-vilant 25 mcg inhalat.powder (Trelegy Ellipta) 1 inh inhalation R DAILYPRN PRN sob 09/28/24
folic acid 1 mg tablet 2 mg PO DAILY Supplement 09/28/24
furosemide 20 mg tablet (Lasix) 40 mg PO DAILY Fluid Retention/Swelling 09/28/24
methotrexate sodium 2.5 mg tablet 10 mg PO MO rheumatoid arthritis 09/28/24
metoprolol succinate 25 mg tablet,extended release 24 hr (Toprol XL) 75 mg PO DAILY Blood Pressure 09/28/24
omeprazole 20 mg tablet,delayed release 40 mg PO DAILY Gastrointestinal Issue 09/28/24
benzonatate 100 mg capsule 100 mg PO TIDPRN PRN cough 10 days #30 caps 10/03/24
budesonide 0.5 mg/2 mL suspension for nebulization 0.5 mg inhalation R BID Lung/Breathing Issues 10/06/24
prednisone 20 mg tablet 40 mg PO DAILY anti-inflammation 10/06/24
Review of Systems
-
History Source: Patient and Family ( at bedside)
A 12 point ROS was completed and negative except as noted: Yes
Constitutional: Reports Fever and Chills
EENT: Denies Sore Throat, Mouth Swelling or Runny Nose
Respiratory: Reports Cough (Productive) and Trouble Breathing
Cardiac: Denies Chest Pain, Diaphoresis, Palpitations or Syncope
Abdomen/GI: Denies Abdominal Pain, Nausea, Vomiting, Diarrhea, Constipated, Bloody Stools or Black Stools
: Denies Dysuria, Frequency, Flank Pain, Incontinence, Difficulty Voiding, Urgency or Dark Urine
Musculoskeletal: Denies Joint Pain or Edema
Skin: Denies Itching or Rash
Neurological: Reports Weakness (Generalized); Denies Dizzy or Headache
Endocrine: Reports No Symptoms
Hematologic/Lymphatic: Reports No Symptoms
Psych: Reports Calm
Physical Exam
Vital Signs
Vital Signs
Temp Pulse Resp BP Pulse Ox
100.9 F H 95 23 130/57 92
10/06/24 09:57 10/06/24 11:00 10/06/24 11:00 10/06/24 11:00 10/06/24 11:00
Physical Exam
General: Conversant, Fever, Chills and Other (Hypoxic on 6 L nasal cannula); No Pain
HEENT: NormoCephalic, Anicteric, Moist mucous membranes, PERRLA, [place] Conjunctivae, No Ptosis and Oxygen (6 L nasal cannula)
Respiratory: Rhonchi (Bilateral bases); No Wheezes or Rales
Cardiac: S1/S2 and Regular Rhythm; No Murmur, Rub, Gallop, Peripheral Edema or JVD
Breast: Deferred by me
GI: Soft, Non Tender, Non Distended, Normal Bowel Sounds and No Hepatosplenomegaly
Rectal: Deferred by Provider
Genito-urinary: Deferred by me
Musculoskeletal: No Clubbing, No Cyanosis and No Edema
Skin: Warm and Dry; No Rash or Jaundice
Neuro: AO x 3, No Motor Deficits, Nonfocal/grossly intact, Cranial Nerves Intact and No Sensory Deficits; No Slurred Speech, Facial Droop, Tremors or Sedated
Psych: Calm
Laboratory Results
-
10/06/24 10:06
10/06/24 10:06
Laboratory Results
Total Bilirubin 0.8 mg/dl (0.2-1.3) 10/06/24 10:06
AST 50 U/L (14-36) H 10/06/24 10:06
ALT 33 U/L (0-35) 10/06/24 10:06
Alkaline Phosphatase 65 U/L (38-126) 10/06/24 10:06
Troponin I 0.028 ng/ml 10/06/24 10:06
Impression/Plan
-
Impression/plan:
Admit to IMU
#Acute HYPOXIC RESP FAILURE secondary to COVID 19 infection/ with Multifocal pneumonia
#SEPSIS secondary to MULTIFOCAL PNA
WBC 18.7 with left shift, temp 100.9 F, HR 95, 130/57,
84% on 6 L nasal cannula
COVID antigen positive today 10/06/2024 negative on 09/28/2024(she had negative RSV negative Legionella/streptococcal antibody negative COVID)
1 day new symptoms of chills, fever, return of cough and hypoxia
Recent echo and Dopplers of legs negative
PLAN:
-Consult PULM -Case discussed with Dr. Mayer
-High flow oxygen given pulse ox 84% on 6 L nasal cannula
-Will start IV Remdesivir this was discussed with pulmonology
-Tylenol as needed fever
-Albuterol MDI inhaler
-Mucinex twice daily, hold Trelegy Ellipta
-IV Solu-Medrol 125 mg now then 40 mg IV every 8 hours
-IV vancomycin, IV cefepime
-Blood cultures x 2, check repeat Legionella/strep PNA, MRSA swab, lactic acid
CXR: Severe bilateral multifocal pneumonia slightly progressed
2D echo 10/01/2024: EF 70 to 75%, hyperdynamic LVSF, no wall abnormalities, enlarged RVS normal RV SF.
Thickened mitral valve at tip of anterior mitral valve leaflet. Mild mitral regurgitation.
Thickened aortic valve with normal leaflet excursion.
Mild aortic regurg/tricuspid regurg
pulm arterial pressure 30-35 mmHg
EKG: NSR 96 bpm, QTc 482 MS
#Recent admission interstitial pneumonia with concerns for connective tissue disorder related and or CAP (community acquired pneumonia)-and if worsens might need to consider broaden to pseudomonas and other opportunistic organisms:
-Was treated with IV Rocephin, Doxy, 5-day course Zithromax
MICHAELA ANCA antibody complements are pending
Bronchoscopy was mentioned if patient did not improve
#Adrenal insufficiency recent 09/28/2024 admission
On 09/28/2024 admission cortisol level in the 3 range and associated with fatigue and electrolytes abnormalities-was treated with stress dose steroids then back to oral
-We will repeat stress dose given extreme hypoxia IV Solu-Medrol 125 mg now then 40 mg IV every 8 hours
Pulmonology to follow
#Acute hyponatremia
NA 125, <129 on discharge 10/03/2024
Likely related to decreased oral solute intake but could be related to adrenal insuf
Hold p.o. Lasix 40 mg
-Fluid restrict 40 ounce
-Check urine NA, urine Osmo, serum Osmo
TSH 0.51 on 09/29/2024
#Acute hypokalemia borderline
K3.6
Will give potassium 40 KCl 1 dose
-Follow BMP, check magnesium
#Acute hypocalcemia
Corrected calcium 7.8, serum 7.6
Will give calcium gluconate 1 g
-Follow calcium level in a.m.
follow ekg's
#Rheumatoid arthritis:
On steroids
Has not been taking methotrexate or Rituxan infusions [employer] since May 2024
#HTN�benign
BP 123/64
-Continue amlodipine 5 mg twice daily with hold parameters, Toprol XL 75 mg daily with hold parameters
#GERD
-Continue omeprazole 40 mg daily
#Hyperlipidemia
-Hold Zetia
Check lipid profile
#Chronic LE edema
Holding diuretics-no current edema
Had recent negative Dopplers
DVT prophylaxis:
Lovenox SQ
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
infection he has son that can check in on him and also make family aware who was around to monitor for signs of COVID infection
[2024-10-06] MEDS: SOLU-MEDROL PF 125 MG IV (13:35)
[2024-10-06] MEDS: MAXIPIME 1000 MG IV (13:36)
[2024-10-06] MEDS: KCL 40 MEQ PO (13:36)
[2024-10-06] MEDS: STERILE WATER FOR INJECTION 10 ML IV ×2 (13:36→21:31)
--- NOTE | 2024-10-06 13:49 | PHA.VAN.IN ---
Assessment
- Assessment
Renal Function: Appears similar to baseline
Concomitant Antimicrobials: cefepime, remdesivir
AUC Dosing Plan
- Dosing Variables
Dosing Weight (kg): 103
Dosing CrCl (ml/min): 89
Vd coefficient (L/kg): 0.7
- Empiric Dosing
Initial / Loading Dose: 2000mg - administration pending
Maintenance Regimen: Vanc 1000mg Q12H starting 10/07 599
Estimated AUC (mcg*h/mL): 438
Estimated Peak (mcg*h/mL): 26.6
Estimated Trough (mcg/ml): 11.7
Estimated Half Life (H): 8.9
- Monitoring
No levels ordered at this time: consider levels in next few days
MRSA Screen: Ordered per protocol
Pharmacokinetics Vancomycin I
- -
Patient Age: 79
Patient Sex: Female
Vancomycin Day #: 1
Indication: Pulmonary/Respiratory
Requesting Provider: Talita Bear
Pertinent Antimicrobial Allergies:
no pertinent antibiotic allergies
Height / Weight:
Height 5 ft 4 in
Actual Weight 102.6 kg
Pertinent Past Medical History: BMI ~39, COVID-19
- Vital Signs / Lab Results
Temp Pulse Resp BP Pulse Ox
100.9 F H 83 30 132/66 97
10/06/24 09:57 10/06/24 13:15 10/06/24 11:21 10/06/24 13:00 10/06/24 13:25
Lab Results - Hematology
10/06/24
10:06
WBC 18.7 H
Lab Results - Chemistry
10/06/24
10:06
BUN 15
Creatinine 0.4 L
Estimated Creat Clear 89
Albumin 3.7
Microbiology Results
10/06/24 11:02 Influenza Types A & B (ELBA) - Final
Nasal Swab Negative for Influenza A & B, NAAT
Negative results must be combined with clinical observations
and patient history.
Nucleic Acid Amplification test (NAAT)performed on the
[employer] platform.
10/06/24 11:02 Respiratory Syncytial Virus Ag - Final
Nasal Swab Negative for Respiratory Syncytial Virus.
A false negative result may be obtained with a specimen
collected early in the acute phase. If symptoms persist, a
new specimen should be tested.
[2024-10-06] MEDS: VEKLURY 250 MG IV (14:06)
[2024-10-06 14:26] LABS: Magnesium 1.9 mg/dl (1.6-2.3); Phosphorus 2.3 mg/dl (2.5-4.5)
[2024-10-06 14:40] LABS: PT 15.5 Sec (11.4-14.6)
--- NOTE | 2024-10-06 14:40 | CON.PUL ---
Consultation
Consultation Request
Date/Time Consultation Requested: 10/06/2024 - 1321
Date/Time Consultation Performed: 10/06/2024 - 1416
Requesting Provider: TERESSA Neely
Performing Provider: Dr. Mayer
Reason for Consultation: Hypoxia/COVID-19/PNA
Medical History
-
Chief Complaint: SOB
History of Present Illness:
79-year-old male non-smoker with a past medical history of RA, chronic lower extremity edema, hypertension and obesity who presents with worsening SOB. Patient recently hospitalized from 09/28 - 10/03/2024 due to multifocal pneumonia treated with
antibiotics with Rocephin/doxycycline. She was discharged home with prednisone taper as well as budesonide and Tessalon Perles and told to resume his Trelegy. After discharge she felt okay for the first day but then started to have worsening cough
and weakness. Then 1 day prior to arrival she had chills with a dry cough and was saturating 83% on home pulse oximetry. Initially in the ER, she was febrile to 100.9 �F, pulse rate 98, breathing at 18 breaths/min, BP 123/56 and saturating 88% on
room air which improved to 90% on 3 L/min. Initial labs showed leukocytosis to 18.7, Hb 11.7, serum sodium 125, serum chloride 89, and COVID-19 antigen was positive. Flu swab was negative and RSV swab also negative. CXR shows worsening bilateral
multifocal pneumonia compared to recent CXR on 09/28/2024. In the ER she was given remdesivir, Solu-Medrol, DuoNebs, cefepime and admitted to the IMU. Pulmonary service consulted for additional management/recommendations.
When I saw the patient she was resting in bed on 8 L/min via mid flow nasal cannula, saturating 95% with heart rate 72 and BP 09/23/1956. She currently feels well at rest but still feels very weak with exertion. Currently denies chest pain, ABBOTT,
nausea, productive cough, fevers or chills.
PMHx: RA on methotrexate, chronic lower extremity edema, hypertension, obesity
PSHx: Appendectomy
Past Medical History
Past Medical History: Other (Above as per HPI)
Past Surgical History: Other (Above as per HPI)
Social History
Tobacco: Non-smoker
Alcohol: Occasional
Drug: None
Personal:
Living: With Family ( Bi)
Family History
Family History: Reviewed & Not Pertinent
Allergies / Home Medications
Allergies
Allergy/AdvReac Type Severity Reaction Status Date / Time
celecoxib [From Celebrex] Allergy Shortness Verified 09/28/24 18:54
of Breath
diphenhydramine Allergy twitching Verified 09/28/24 18:54
[From Benadryl]
Home Medications
�Medication �Instructions �Recorded �Confirmed �Last Taken �Type
amlodipine 5 mg tablet (Norvasc) 5 mg PO BID Blood Pressure 09/28/24 10/06/24 10/06/24 History
ezetimibe 10 mg tablet (Zetia) 10 mg PO DAILY High Cholesterol 09/28/24 10/06/24 10/06/24 History
fluticasone fur. 100 mcg-umeclid 1 inh inhalation R DAILYPRN PRN sob 09/28/24 10/06/24 09/27/24 History
62.5 mcg-vilant 25 mcg
inhalat.powder (Trelegy Ellipta)
folic acid 1 mg tablet 2 mg PO DAILY Supplement 09/28/24 10/06/24 10/06/24 History
furosemide 20 mg tablet (Lasix) 40 mg PO DAILY Fluid 09/28/24 10/06/24 10/06/24 History
Retention/Swelling
methotrexate sodium 2.5 mg tablet 10 mg PO MO rheumatoid arthritis 09/28/24 10/06/24 09/07/24 History
metoprolol succinate 25 mg 75 mg PO DAILY Blood Pressure 09/28/24 10/06/24 10/06/24 History
tablet,extended release 24 hr
(Toprol XL)
omeprazole 20 mg tablet,delayed 40 mg PO DAILY Gastrointestinal 09/28/24 10/06/24 10/06/24 History
release Issue
benzonatate 100 mg capsule 100 mg PO TIDPRN PRN cough 10 days 10/03/24 10/06/24 Unknown Rx
#30 caps
budesonide 0.5 mg/2 mL suspension 0.5 mg inhalation R BID 10/06/24 10/06/24 10/06/24 History
for nebulization Lung/Breathing Issues
prednisone 20 mg tablet 40 mg PO DAILY anti-inflammation 10/06/24 10/06/24 10/06/24 History
Review of Systems
-
History Source: Patient
All other systems: Negative unless noted
Vitals / Labs / Diagnostic Testing
Vital Signs
Temp Pulse Resp BP Pulse Ox
97.3 F 78 20 125/85 97
10/06/24 19:52 10/06/24 20:00 10/06/24 20:00 10/06/24 20:00 10/06/24 20:00
Lab Data
10/06/24 10:06
10/06/24 10:06
Laboratory Results
10/06/24
14:16
PT 15.5 H
INR 1.20
Microbiology
10/06/24 15:39 Nose Nasal Screen MRSA (PCR) - Final
MRSA not detected - performed by PCR methodology.
10/06/24 16:48 Urine Legionella Urinary Antigen - Final
Negative for Legionella pneumophila Serogroup 1 antigen.
A negative result does not rule out the possiblity of
Legionella infection due to other serogroups or species of
Legionella. Clinical correlation is recommended.
10/06/24 16:48 Urine Streptococcus pneumoniae Antigen (M - Final
Negative for Streptococcus pneumoniae antigen.
A negative result does not exclude infection with
Streptococcus pneumoniae. Clinical correlation is
recommended.
10/06/24 11:02 Nasal Swab Influenza Types A & B (ELBA) - Final
Negative for Influenza A & B, NAAT
Negative results must be combined with clinical observations
and patient history.
Nucleic Acid Amplification test (NAAT)performed on the
[employer] platform.
10/06/24 11:02 Nasal Swab Respiratory Syncytial Virus Ag - Final
Negative for Respiratory Syncytial Virus.
A false negative result may be obtained with a specimen
collected early in the acute phase. If symptoms persist, a
new specimen should be tested.
Diagnostic Testing:
Physical Exam
-
HEENT: Normocephalic and Anicteric
Cardiovascular: S1/S2 and Peripheral Edema (Trace lower extremity edema bilaterally)
Respiratory: Wheeze (negative), Rales (Bilaterally), Rhonchi (Bilaterally) and Non-Labored Respirations
GI: Soft, Non Distended, Non Tender and Normal Bowel Sounds
Neurology: AO x 3 and Tremors (negative)
Skin: Warm and Dry
General: Respiratory Distress (negative), Comfortable, Fever (negative) and Chills (negative)
Assessment
-
Assessment: 79-year-old male non-smoker with a past medical history of RA, chronic lower extremity edema, hypertension and obesity who presents with worsening SOB. Patient recently hospitalized from 09/28 - 10/03/2024 due to multifocal pneumonia
treated with antibiotics with Rocephin/doxycycline. She was discharged home with prednisone taper as well as budesonide and Tessalon Perles and told to resume his Trelegy. After discharge she felt okay for the first day but then started to have
worsening cough and weakness. Then 1 day prior to arrival she had chills with a dry cough and was saturating 83% on home pulse oximetry. Initially in the ER, she was febrile to 100.9 �F, pulse rate 98, breathing at 18 breaths/min, BP 123/56 and
saturating 88% on room air which improved to 90% on 3 L/min. Initial labs showed leukocytosis to 18.7, Hb 11.7, serum sodium 125, serum chloride 89, and COVID-19 antigen was positive. Flu swab was negative and RSV swab also negative. CXR shows
worsening bilateral multifocal pneumonia compared to recent CXR on 09/28/2024. In the ER she was given remdesivir, Solu-Medrol, DuoNebs, cefepime and admitted to the IMU. Pulmonary service consulted for additional management/recommendations.
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
Impression:
#Acute respiratory failure with hypoxia due to COVID-19 pneumonia with a bacterial superinfection
#Leukocytosis likely due to sepsis from above
#Chronic hyponatremia
#Hypophosphatemia
#Transaminitis with elevated AST
#Recent hospitalization with multifocal pneumonia treated with Rocephin/doxycycline s/p Zithromax x 1 dose
#RA on methotrexate
#History of hypertension
#Morbid obesity with BMI: 37.3
Plan:
- Admission CXR shows similar distribution of pneumonia from prior but now with worsening opacification and increased density
- Patient denies any recent sick contacts and it is very possible that she contracted COVID-19 during her recent hospitalization
- Would continue with systemic steroids with Solu-Medrol 40 mg IV q8hr and wean as she clinically improves
- Continue remdesivir x 5 days
- Continue broad-spectrum antibiotics with IV vancomycin/cefepime --> check MRSA swab and if negative can DC IV vancomycin
- Urine antigens for Legionella + strep pneumonia both negative
- Blood cultures from today are pending
- Check sputum culture if she can produce a decent sample
- Would hold her methotrexate
- Maintain SpO2 >90-94% with supplemental O2 and wean as tolerated
- She is prescribed Trelegy as outpatient, would continue with Spiriva + Symbicort with ProAir QID (unable to use nebs given her acute COVID-19 status)
- prn albuterol - not currently bronchospastic
- Mucolytics with mucinex
- Continue PPI (home med)
- Incentive spirometer encouraged q1hr while awake
- Replete electrolytes with K>4, Mg>2
- Trend H/H and transfuse if needed to keep Hb>7g/dL; keep plt>20k, unless there is concern for bleeding then keep plt>50k
- Maintain euglycemia with goal BG >100 and <180
- DVT ppx: LMWH
Pulmonary service will continue to follow along. Outpatient office follow-up will be arranged. Repeat imaging in 4 to 6 weeks should be obtained to follow-up for pneumonia resolution.
Data:
CXR 10/06/2024:
Severe bilateral multifocal pneumonia, slightly progressed compared to CXR on 09/28/2024
Total time spent today was 57 minutes for this encounter. Time includes reviewing laboratory test/imaging results, reviewing pertinent medical records, obtaining and reviewing medical history, performing an appropriate exam, ordering medications,
tests and procedures. Time also includes documentation of this encounter, coordinating patient care and communicating with other healthcare professionals. Total time does not include separately billed tests performed on this date of service.
[2024-10-06] MEDS: ProAIR HFA INHALER 2 PUFF INH ×2 (14:44→19:46)
[2024-10-06] MEDS: VANCOCIN 540 MG IV (15:45)
--- NOTE | 2024-10-06 16:00 | PTCARENOTE ---
Received patient from ED with remdesivir infusing. SR on monitor. VS stable, afebrile. Patient AAOx3. Oriented patient to room.
[2024-10-06 17:05] LABS: Urine Albumin Negative (Neg - Trace); Urine Bilirubin Negative (Negative); Urine Character Clear (Clear); Urine Color Yellow; Urine Glucose Negative (Negative); Urine Ketone 1+ (Negative); Urine Leukocyte Negative (Negative); Urine Nitrite Negative (Negative); Urine Occult Blood 1+ (Negative); Urine Urobilinogen Negative (Neg - 1+)
[2024-10-06 17:28] LABS: Osmolality Urine 165 mOsm/kg (300-900)
[2024-10-06 17:36] LABS: Urine Sodium 6 mmol/L (30-90)
[2024-10-06 18:11] LABS: Urine Red Blood Cell 0-2 /HPF (0-2); Urine Squamous Cell 0-2 /LPF (Few)
[2024-10-06] MEDS: CALCIUM GLUCONATE 100 IV (18:16)
[2024-10-06] MEDS: SOLU-MEDROL PF 40 MG IV (19:53)
[2024-10-06] MEDS: MUCINEX 600 MG PO (19:53)
[2024-10-06] MEDS: LOVENOX 40 MG SC (19:53)
[2024-10-06] MEDS: NORVASC 5 MG PO (19:53)
[2024-10-06 20:30] LABS: Lactic Acid 1.1 mmol/L (0.7-2.0)
[2024-10-06 20:31] LABS: Osmolality Serum 274 mOsm/kg (275-300)
[2024-10-06] MEDS: STERILE WATER FOR INJECTION IV (20:53)
[2024-10-06] MEDS: MAXIPIME 2000 MG IV (21:31)
--- NOTE | 2024-10-06 23:47 | PTCARENOTE ---
Rec'd pt from previous RN, who reported that pt had a fever in ED. Pt states that she feels that her fever broke, as she was diaphoretic. Hygiene care performed, t 95.3 on assessment. Warm blankets provided. Pt was able to stand/pivot to BSC to
void. Pt remains NSR on monitor. O2 titrated to 5L, pulsox 97%. Call eric within reach.
[2024-10-07] VITALS (13 sets, daily range): BP systolic 122–158; BP diastolic 56–85; BMI 37.0
[2024-10-07] MEDS: SOLU-MEDROL PF 40 MG IV ×2 (04:52→11:53)
[2024-10-07] MEDS: MAXIPIME 2000 MG IV ×3 (05:00→21:31)
[2024-10-07] MEDS: STERILE WATER FOR INJECTION 10 ML IV ×3 (05:00→21:32)
[2024-10-07 05:35] LABS: % Basophils 0.1 % (0-2); % Lymphocytes 6.4 % (20.5-51.1); % Monocytes 2.5 % (1.7-9.3); Absolute Immature Granulocytes 0.1 10^3/uL (0-0.05); Absolute Lymphocytes 0.8 10^3/uL (1.2-3.4); Absolute Monocytes 0.3 10^3/uL (0.1-0.6); Absolute Neutrophils 10.5 10^3/uL (1.4-6.5); Hematocrit 36.2 % (37.0-47.0); Hemoglobin 12.4 g/dL (12.0-16.0); Mean Corp Hgb Conc. 34.3 g/dL (33.0-37.0); Mean Corpuscular Hgb 27.1 pg (27.0-31.0); Mean Corpuscular Volume 79.2 fL (81.0-99.0); Mean Platelet Volume 9.5 fL (7.4-10.4); Nucleated Red Blood Cells % 0 %; Platelet Count 432 10^3/uL (130-400); Red Blood Cell Count 4.57 10^6/uL (4.20-5.40); Red Cell Dist. Width 13.8 % (11.5-14.5); White Blood Cell Count 11.7 10^3/uL (4.8-10.8)
[2024-10-07 06:30] LABS: ALT (SGPT) 37 U/L (0-35); AST (SGOT) 42 U/L (14-36); Albumin 3.5 g/dl (3.5-5.0); Alkaline Phosphatase 70 U/L (38-126); Blood Urea Nitrogen 15 mg/dl (7-17); Calcium 8.2 mg/dl (8.4-10.2); Carbon Dioxide 27 mmol/L (22-30); Chloride 96 mmol/L (98-107); Direct Bilirubin 0.4 mg/dl (0.0-0.4); Estimated Creatinine Clearance 87 ml/min; Glucose 153 mg/dl (70-99); Potassium 3.9 mmol/L (3.5-5.1); Sodium 134 mmol/L (135-145); Total Bilirubin 0.5 mg/dl (0.2-1.3); Total Protein 6.6 g/dl (6.3-8.2); eGFR > 60.00
[2024-10-07] MEDS: ProAIR HFA INHALER 2 PUFF INH ×4 (08:22→19:58)
[2024-10-07] MEDS: PROTONIX 40 MG PO (09:04)
[2024-10-07] MEDS: MUCINEX 600 MG PO ×2 (09:04→21:31)
[2024-10-07] MEDS: TESSALON PERLES 100 MG PO ×2 (09:04→16:55)
[2024-10-07] MEDS: TOPROL XL 75 MG PO (09:04)
[2024-10-07] MEDS: NORVASC 5 MG PO ×2 (09:06→21:26)
[2024-10-07 09:47] LABS: Procalcitonin 0.29 ng/ml (0.0-0.25)
--- NOTE | 2024-10-07 10:13 | W.PN.HOSP.TC ---
Today's Communication/Plan
-
see PN
Assessment / Plan
Assessment / Plan
79yo F with adrenal insufficiency on chronic steroids, HTN, COPD, GERD, RA on DMARD, recent admission for pneumonia, started with worsening cough on the day before admission. Found COVID-19 with hypoxia
#Acute COVID-19 with acute hypoxic respiratory failure and multifocal pneumonia
Wean O2 as possible
Steroids and Remdesivir started
With elevated procalcitonin - cont Abx. Recently completed Rocephin/DOxy, will escalate to Cefepime/VAnco for possible HAP
bronchodilators
Sputum Cx
Legionella and S.pneumonia urinary Ag neg
Bcx pending
RSV, influenza PCR neg
Pulm consult
#Adrenal insufficiency
#pulmonary HTN
#GERD
#RA
cont home meds
#Mild transaminitis
follow LFTcheck hepatitis panel
most likely reactive 2/2 viral disease
#Hyponatremia
#Chronic LE edema
COnt lasix, follow and replete electrolytes
DVT ppx lovenox
Full code
I have spent at least 58min reviewing chart, test results, communication with consultants and direct patient care
Anticipated Discharge: > 48 hours
Subjective/Interval History
-
Date of Service: October 07, 2024
Objective Data
-
Labs:
Laboratory Results
10/07/24
05:10
WBC 11.7 H
Hgb 12.4
Hct 36.2 L
Plt Count 432 H
Sodium 134 L D
Potassium 3.9
Chloride 96 L
Carbon Dioxide 27
BUN 15
Creatinine 0.3 L
Glucose 153 H
Calcium 8.2 L
Total Bilirubin 0.5
AST 42 H
ALT 37 H
Alkaline Phosphatase 70
Vital Signs:
Vital Signs
Temp Pulse Resp BP Pulse Ox
97.8 F 89 20 158/80 92
10/07/24 07:45 10/07/24 08:26 10/07/24 08:26 10/07/24 08:00 10/07/24 08:26
I&O
10/06/24 10/07/24 10/08/24
06:59 06:59 06:59
Intake Total 1270 / 1270
Output Total 840 / 840
Balance 430 / 430
Review of Systems
-
History Source: Patient
All other systems: Reviewed and negative
Physical Exam
-
General: No Apparent Distress
HEENT: Normocephalic
Respiratory: Clear to Auscultation
Cardiac: Regular Rhythm
GI: Soft, Nontender and Nondistended
Genito-urinary: No Costovertebral Tender
Musculoskeletal: No Clubbing, No Cyanosis and No Edema
Neuro: Awake, Alert, Oriented and AO x 3
Psych: Calm
--- NOTE | 2024-10-07 10:41 | W.PN.PUL3 ---
Today's Communication / Plan
-
Discontinue Solu-Medrol
Decadron once a day
Continue antibiotics
Continue remdesivir
DVT prophylaxis
Wean oxygen
Assessment
-
Assessment: 79-year-old male non-smoker with a past medical history of RA, chronic lower extremity edema, hypertension and obesity who presents with worsening SOB. Patient recently hospitalized from 09/28 - 10/03/2024 due to multifocal pneumonia
treated with antibiotics with Rocephin/doxycycline. She was discharged home with prednisone taper as well as budesonide and Tessalon Perles and told to resume his Trelegy. After discharge she felt okay for the first day but then started to have
worsening cough and weakness. Then 1 day prior to arrival she had chills with a dry cough and was saturating 83% on home pulse oximetry. Initially in the ER, she was febrile to 100.9 �F, pulse rate 98, breathing at 18 breaths/min, BP 123/56 and
saturating 88% on room air which improved to 90% on 3 L/min. Initial labs showed leukocytosis to 18.7, Hb 11.7, serum sodium 125, serum chloride 89, and COVID-19 antigen was positive. Flu swab was negative and RSV swab also negative. CXR shows
worsening bilateral multifocal pneumonia compared to recent CXR on 09/28/2024. In the ER she was given remdesivir, Solu-Medrol, DuoNebs, cefepime and admitted to the IMU. Pulmonary service consulted for additional management/recommendations.
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
Impression:
#Acute respiratory failure with hypoxia due to COVID-19 pneumonia with a bacterial superinfection
#Leukocytosis likely due to sepsis from above
#Chronic hyponatremia
#Hypophosphatemia
#Transaminitis with elevated AST
#Recent hospitalization with multifocal pneumonia treated with Rocephin/doxycycline s/p Zithromax x 1 dose
#RA on methotrexate
#History of hypertension
#Morbid obesity with BMI: 37.3
Plan/recommendations:
Overall, encouraged the patient is improved subjectively
Mild crackles noted on exam
Presently 93% on 4 L
Positive COVID status noted
Moving forward
Continue with supportive care
Remains on cefepime/vancomycin for possible bacterial process
Remains on steroids, will change to Decadron once a day
Remains on remdesivir, will discontinue after 5 days
Continue to hold methotrexate
Incentive spirometry, out of bed to chair as able
DVT ppx: LMWH
GI prophylaxis: Remains on pantoprazole
Pulmonary service will continue to follow along. Outpatient office follow-up will be arranged. Repeat imaging in 4 to 6 weeks should be obtained to follow-up for pneumonia resolution.
Data:
CXR 10/06/2024:
Severe bilateral multifocal pneumonia, slightly progressed compared to CXR on 09/28/2024
Total time spent today was 57 minutes for this encounter. Time includes reviewing laboratory test/imaging results, reviewing pertinent medical records, obtaining and reviewing medical history, performing an appropriate exam, ordering medications,
tests and procedures. Time also includes documentation of this encounter, coordinating patient care and communicating with other healthcare professionals. Total time does not include separately billed tests performed on this date of service.
Subjective Data
-
Date of Service:
Date of Service: October 07, 2024
Subjective:
Patient feels much better overall. Less short of breath. Has mild dry cough, denies chest pain, nausea, abdominal pain. Appears to be in good spirits
Objective Data
Data Reviewed
Vital Signs / I&O / Oxygen:
Vital Signs
Temp Pulse Resp BP Pulse Ox
97.8 F 89 20 158/80 92
10/07/24 07:45 10/07/24 08:26 10/07/24 08:26 10/07/24 08:00 10/07/24 08:26
Intake and Output
10/06/24 10/07/24 10/08/24
06:59 06:59 06:59
Intake Total 1270 / 1270
Output Total 840 / 840
Balance 430 / 430
SaO2 92
Nasal Cannula flow liters per 3
minute
Physical Exam
General: Comfortable
HEENT: Normocephalic and Anicteric
Cardiovascular: S1-S2, Regular Rhythm, Murmur (n) and Rub (n)
Respiratory: Wheeze (n), Crackles (Few scattered), Rhonchi (n) and Non-Labored Respirations
GI: Soft, Non Distended and Non Tender
Neurology: Awake, Alert and No Motor Deficits
Skin: Cyanosis (n), Jaundice (n) and Rash (n)
Labs/Micro/Reports
Lab Data
10/07/24 05:10
10/07/24 05:10
Laboratory Results
10/06/24
14:16
PT 15.5 H
INR 1.20
Microbiology
10/06/24 15:39 Nose Nasal Screen MRSA (PCR) - Final
MRSA not detected - performed by PCR methodology.
10/06/24 16:48 Urine Legionella Urinary Antigen - Final
Negative for Legionella pneumophila Serogroup 1 antigen.
A negative result does not rule out the possiblity of
Legionella infection due to other serogroups or species of
Legionella. Clinical correlation is recommended.
10/06/24 16:48 Urine Streptococcus pneumoniae Antigen (M - Final
Negative for Streptococcus pneumoniae antigen.
A negative result does not exclude infection with
Streptococcus pneumoniae. Clinical correlation is
recommended.
10/06/24 11:02 Nasal Swab Influenza Types A & B (ELBA) - Final
Negative for Influenza A & B, NAAT
Negative results must be combined with clinical observations
and patient history.
Nucleic Acid Amplification test (NAAT)performed on the
[employer] platform.
10/06/24 11:02 Nasal Swab Respiratory Syncytial Virus Ag - Final
Negative for Respiratory Syncytial Virus.
A false negative result may be obtained with a specimen
collected early in the acute phase. If symptoms persist, a
new specimen should be tested.
--- NOTE | 2024-10-07 11:50 | PHA.VAN.FU ---
Vancomycin Assessment / Plan
- Assessment
Renal Function: Stable
WBC's are: Trending Down
In the past 24 hrs, patient has been: Afebrile
Concomitant Antimicrobials: cefepime
- Dosing Plan
Continue: resume Vancomycin 1g Q12H - first dose now then 0600
Dosing Comments: will not re-load patient at this time given age
- Monitoring Plan
No level(s) ordered at this time: consider levels in next few days
- Follow Up
Pharmacy will continue to follow.
Vancomycin Follow UP
- -
Patient Age: 79
Patient Sex: Female
Vancomycin Day #: 2 (discontinued 10/06 and restarted 10/07)
Indication: Pulmonary/Respiratory
Requesting Provider: Talita Bear
Pertinent Antimicrobial Allergies:
no pertinent antibiotic allergies
Height / Weight:
Height 5 ft 4 in
Actual Weight 97.7 kg
Pertinent Past Medical History: BMI ~39, COVID-19
- Vital Signs / Lab Results
Temp Pulse Resp BP Pulse Ox
97.8 F 90 20 158/80 92
10/07/24 07:45 10/07/24 11:34 10/07/24 11:34 10/07/24 08:00 10/07/24 11:34
Lab Results - Hematology
10/06/24 10/07/24
10:06 05:10
WBC 18.7 H 11.7 H
Lab Results - Chemistry
10/06/24 10/07/24
10:06 05:10
BUN 15 15
Creatinine 0.4 L 0.3 L
Estimated Creat Clear 89 87
Albumin 3.7 3.5
10/06/24 10/06/24 10/06/24
15:13 20:04 23:13
Lactic Acid Cancelled 1.1 Cancelled
10/07/24
03:13
Lactic Acid Cancelled
Lab Results - Urine
10/06/24
16:48
Urine Nitrite (Reflex) Negative
Leukocyte Esterase Rfl Negative
Ur Squamous Epith Cells 0-2
Microbiology Results
10/06/24 15:39 Nasal Screen MRSA (PCR) - Final
Nose MRSA not detected - performed by PCR methodology.
10/06/24 16:48 Legionella Urinary Antigen - Final
Urine Negative for Legionella pneumophila Serogroup 1 antigen.
A negative result does not rule out the possiblity of
Legionella infection due to other serogroups or species of
Legionella. Clinical correlation is recommended.
Streptococcus pneumoniae Antigen (M - Final
Negative for Streptococcus pneumoniae antigen.
A negative result does not exclude infection with
Streptococcus pneumoniae. Clinical correlation is
recommended.
10/06/24 11:02 Influenza Types A & B (ELBA) - Final
Nasal Swab Negative for Influenza A & B, NAAT
Negative results must be combined with clinical observations
and patient history.
Nucleic Acid Amplification test (NAAT)performed on the
[employer] platform.
10/06/24 11:02 Respiratory Syncytial Virus Ag - Final
Nasal Swab Negative for Respiratory Syncytial Virus.
A false negative result may be obtained with a specimen
collected early in the acute phase. If symptoms persist, a
new specimen should be tested.
[2024-10-07] MEDS: LASIX 40 MG PO (11:53)
[2024-10-07] MEDS: VEKLURY 250 MG IV (11:54)
--- NOTE | 2024-10-07 12:28 | PTCARENOTE ---
Patient feeling a little better today. Currently midflow at 4L patient saturating 90%-94%. She still reports some shortness of breath with exertion. Breath sounds diminished and coarse with some crackles at the bases. Dry cough but she is
coughing less frequently. VS stable,afebrile. Appetite better today. Patient using commode and calling for assistance to get up. in room at bedside.
[2024-10-07] MEDS: VANCOCIN 200 IV (13:29)
--- NOTE | 2024-10-07 13:31 | PN.CDI ---
Addendum entered and electronically signed by Atilio Whatley MD 10/07/24 13:43:
no sepsis
Original Note:
CDI
- -
CDI:
Physician Documentation Request
Admit Date: 10/06/24 14:33
Dear Doctor Chacorta,
Please review the following and provide your response in the progress notes.
Clinical Indicators:
The diagnosis of sepsis was documented on 2/4 H&P but is not consistently noted in subsequent documentation.
- 2/4 H&P 'Sepsis secondary to multifocal PNA'
- 2/5 PN 'Acute COVID-19 with acute hypoxic respiratory failure and multifocal pneumonia'
- On admission:
- WBC 18.7
- Tmax 100.9
- HR 90-100
- IV abx cefepime, vancomycin
Please clarify the following:
____ - Sepsis was present on admission and is now resolved
____ - Sepsis was present on admission and is still being monitored, evaluated or treated
____ - Sepsis was ruled out
____ - Other
Use of terms such as suspected, likely, concern for, or probable (associated with a specific diagnosis that is being evaluated, monitored, or treated as if it exists) are acceptable and can be coded in the inpatient setting, when documented at the
time of discharge.
Thank you,
Aliza Gamez RN
CDI Specialist
Please use your independent medical judgment in providing your response.
--- NOTE | 2024-10-07 16:41 | CM ---
Patient with Dx Acute COVID-19, acute hypoxic respiratory failure, pneumonia. O2 4L midflow. Receiving IV Abx, IV Steroids, IV Remdesivir. PT Eval; no needs.
Spoke with patient who resides with her in a 1st floor condo with 6 entry steps.
The patient was independent in ADLs and ambulation.
DME - rollator, [employer], electric scooter
No VN or prior SNF.
Pharmacy - [facility], [place], [place]
Discussed having VN nurse & PT support at home - patient agrees to a referral to [facility].
Referral placed to [facility].
Plan watch for any home O2 needs.
Plan home with [facility] VN.
[2024-10-07] MEDS: LOVENOX 40 MG SC (21:25)
[2024-10-08] VITALS (12 sets, daily range): BP systolic 113–159; BP diastolic 56–74; BMI 37.1
--- NOTE | 2024-10-08 01:14 | PTCARENOTE ---
Pt received from previous RN. Pt AA0x3. Pt on 4L 02 satting 95% and above. Can be SOB on exertion. pt used BSC x1 to urinate. HS oral care done by self. Assessment as documented. Call light in reach.
[2024-10-08] MEDS: TESSALON PERLES 100 MG PO (03:37)
[2024-10-08] MEDS: STERILE WATER FOR INJECTION 10 ML IV ×3 (06:14→21:18)
[2024-10-08] MEDS: VANCOCIN 200 IV (06:14)
[2024-10-08] MEDS: MAXIPIME 2000 MG IV ×3 (06:15→21:18)
[2024-10-08 07:16] LABS: % Basophils 0.2 % (0-2); % Immature Granulocytes 1.3 % (0-0.5); % Lymphocytes 3.9 % (20.5-51.1); % Neutrophils 88.6 % (42.2-75.2); Absolute Immature Granulocytes 0.3 10^3/uL (0-0.05); Absolute Lymphocytes 0.9 10^3/uL (1.2-3.4); Absolute Monocytes 1.3 10^3/uL (0.1-0.6); Absolute Neutrophils 19.5 10^3/uL (1.4-6.5); Hematocrit 34.9 % (37.0-47.0); Hemoglobin 11.7 g/dL (12.0-16.0); Mean Corp Hgb Conc. 33.5 g/dL (33.0-37.0); Mean Corpuscular Hgb 27.2 pg (27.0-31.0); Mean Corpuscular Volume 81.2 fL (81.0-99.0); Mean Platelet Volume 9.4 fL (7.4-10.4); Nucleated Red Blood Cells % 0 %; Platelet Count 449 10^3/uL (130-400); Red Cell Dist. Width 14.2 % (11.5-14.5)
[2024-10-08 07:20] LABS: ALT (SGPT) 38 U/L (0-35); AST (SGOT) 46 U/L (14-36); Albumin 2.8 g/dl (3.5-5.0); Alkaline Phosphatase 76 U/L (38-126); Blood Urea Nitrogen 25 mg/dl (7-17); Calcium 8.4 mg/dl (8.4-10.2); Carbon Dioxide 33 mmol/L (22-30); Chloride 97 mmol/L (98-107); Direct Bilirubin 0.3 mg/dl (0.0-0.4); Estimated Creatinine Clearance 86 ml/min; Glucose 119 mg/dl (70-99); Sodium 134 mmol/L (135-145); Total Bilirubin 0.4 mg/dl (0.2-1.3); Total Protein 5.6 g/dl (6.3-8.2); eGFR > 60.00
[2024-10-08] MEDS: HYLENEX 150 UNITS SC (08:25)
--- NOTE | 2024-10-08 08:35 | VATNOTE ---
Responded to page from PCN notifying that pt had a vancomycin infiltrate. Instructed PCN to apply heat immediately and leave PIV in place so I could assess. Came to see pt YOU. Minimal fluid aspirated and PIV removed. Infiltrate 11 cm x 7 cm marked
with skin marker. MD contacted for Hylenex order, received. New IV established after assessment showed remaining PIV was leaking. Hylenex administered and heat reapplied. Will reassess in 1-2 hours per protocol.
[2024-10-08] MEDS: ProAIR HFA INHALER 2 PUFF INH ×3 (08:52→19:40)
--- NOTE | 2024-10-08 09:14 | W.PN.PUL3 ---
Today's Communication / Plan
-
Continue to wean oxygen
Decadron every 24 hours
Remains on antibiotics
Out of bed to chair, ambulate if possible
Remdesivir for 5 days then discontinue
Assessment
-
Assessment: 79-year-old male non-smoker with a past medical history of RA, chronic lower extremity edema, hypertension and obesity who presents with worsening SOB. Patient recently hospitalized from 09/28 - 10/03/2024 due to multifocal pneumonia
treated with antibiotics with Rocephin/doxycycline. She was discharged home with prednisone taper as well as budesonide and Tessalon Perles and told to resume his Trelegy. After discharge she felt okay for the first day but then started to have
worsening cough and weakness. Then 1 day prior to arrival she had chills with a dry cough and was saturating 83% on home pulse oximetry. Initially in the ER, she was febrile to 100.9 �F, pulse rate 98, breathing at 18 breaths/min, BP 123/56 and
saturating 88% on room air which improved to 90% on 3 L/min. Initial labs showed leukocytosis to 18.7, Hb 11.7, serum sodium 125, serum chloride 89, and COVID-19 antigen was positive. Flu swab was negative and RSV swab also negative. CXR shows
worsening bilateral multifocal pneumonia compared to recent CXR on 09/28/2024. In the ER she was given remdesivir, Solu-Medrol, DuoNebs, cefepime and admitted to the IMU. Pulmonary service consulted for additional management/recommendations.
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
Impression:
#Acute respiratory failure with hypoxia due to COVID-19 pneumonia with a bacterial superinfection
#Leukocytosis likely due to sepsis from above
#Chronic hyponatremia
#Hypophosphatemia
#Transaminitis with elevated AST
#Recent hospitalization with multifocal pneumonia treated with Rocephin/doxycycline s/p Zithromax x 1 dose
#RA on methotrexate
#History of hypertension
#Morbid obesity with BMI: 37.3
Plan/recommendations:
Overall, encouraged the patient is improved subjectively
Mild crackles noted on exam
Presently 98% on 4 L
Positive COVID status noted
Chest x-ray with persistent bilateral infiltrates
Moving forward
Continue with supportive care
Remains on cefepime/vancomycin for possible bacterial process
Remains on steroids, Decadron once a day
Remains on remdesivir, will discontinue after 5 days
Continue to hold methotrexate
Incentive spirometry, out of bed to chair as able
Attempts to wean oxygen therapy
Head of bed elevated, aspiration precautions
DVT ppx: LMWH
GI prophylaxis: Remains on pantoprazole
Pulmonary service will continue to follow along. Outpatient office follow-up will be arranged. Repeat imaging in 4 to 6 weeks should be obtained to follow-up for pneumonia resolution.
Data:
CXR 10/06/2024:
Severe bilateral multifocal pneumonia, slightly progressed compared to CXR on 09/28/2024
Subjective Data
-
Date of Service:
Date of Service: October 08, 2024
Subjective:
Patient feels slightly better than yesterday. She is 97% during my evaluation. She appears comfortable, conversant. Denies nausea, chest pain. She admits to mild cough, no hemoptysis
Objective Data
Data Reviewed
Vital Signs / I&O / Oxygen:
Vital Signs
Temp Pulse Resp BP Pulse Ox
97.9 F 83 18 159/74 93
10/08/24 08:01 10/08/24 08:56 10/08/24 08:56 10/08/24 06:00 10/08/24 08:56
Intake and Output
10/07/24 10/08/24 10/09/24
06:59 06:59 06:59
Intake Total 1270 / 1270 1545 / 1545
Output Total 840 / 840 1140 / 1140
Balance 430 / 430 405 / 405
SaO2 93
Nasal Cannula flow liters per 4
minute
Physical Exam
General: Comfortable
HEENT: Normocephalic and Anicteric
Cardiovascular: S1-S2, Regular Rhythm, Murmur (n) and Rub (n)
Respiratory: Wheeze (n), Crackles (Few scattered anteriorly right greater than left), Rhonchi (n) and Non-Labored Respirations
GI: Soft, Non Distended and Non Tender
Neurology: Awake, Alert and No Motor Deficits
Skin: Cyanosis (n), Jaundice (n) and Rash (n)
Labs/Micro/Reports
Lab Data
10/08/24 06:10
10/08/24 06:10
Microbiology
10/06/24 14:16 Blood/Venous Blood Culture - Preliminary
No Growth in 24 hours- Final report to follow
10/06/24 14:16 Blood/Venous Blood Culture - Preliminary
No Growth in 24 hours- Final report to follow
10/06/24 15:39 Nose Nasal Screen MRSA (PCR) - Final
MRSA not detected - performed by PCR methodology.
10/06/24 16:48 Urine Legionella Urinary Antigen - Final
Negative for Legionella pneumophila Serogroup 1 antigen.
A negative result does not rule out the possiblity of
Legionella infection due to other serogroups or species of
Legionella. Clinical correlation is recommended.
10/06/24 16:48 Urine Streptococcus pneumoniae Antigen (M - Final
Negative for Streptococcus pneumoniae antigen.
A negative result does not exclude infection with
Streptococcus pneumoniae. Clinical correlation is
recommended.
10/06/24 11:02 Nasal Swab Influenza Types A & B (ELBA) - Final
Negative for Influenza A & B, NAAT
Negative results must be combined with clinical observations
and patient history.
Nucleic Acid Amplification test (NAAT)performed on the
[employer] platform.
02/04/25 11:02 Nasal Swab Respiratory Syncytial Virus Ag - Final
Negative for Respiratory Syncytial Virus.
A false negative result may be obtained with a specimen
collected early in the acute phase. If symptoms persist, a
new specimen should be tested.
[2024-10-08] MEDS: LASIX 40 MG PO (09:17)
[2024-10-08] MEDS: MUCINEX 600 MG PO ×2 (09:17→21:13)
[2024-10-08] MEDS: TOPROL XL 75 MG PO (09:18)
[2024-10-08] MEDS: PROTONIX 40 MG PO (09:18)
[2024-10-08] MEDS: NORVASC 5 MG PO ×2 (09:19→21:13)
[2024-10-08] MEDS: DECADRON 6 MG IV (09:20)
--- NOTE | 2024-10-08 09:50 | VATNOTE ---
Reassessment of vancomycin infiltrate: skin without erythema and swelling greatly reduced. Pt states that it is no longer painful. Infiltrate does not require additional treatment at this time. Instructed pt and PCN to apply heat as needed to reduce
swelling further or for any discomfort.
[2024-10-08] MEDS: VEKLURY 250 MG IV (12:12)
--- NOTE | 2024-10-08 12:27 | W.PN.HOSP.TC ---
Today's Communication/Plan
-
Stop Vanco, cont Cefepime and Remdesivir with steroids
Wean off O2
Assessment / Plan
Assessment / Plan
79yo F with adrenal insufficiency on chronic steroids, HTN, COPD, GERD, RA on DMARD, recent admission for pneumonia, started with worsening cough on the day before admission. Found COVID-19 with hypoxia
#Acute COVID-19 with acute hypoxic respiratory failure and multifocal pneumonia
Wean O2 as possible
Steroids and Remdesivir started, follow LFT
With elevated procalcitonin - cont Abx. Recently completed Rocephin/DOxy, initially escalated to Cefepime/VAnco for possible HAP, Vanco then stopped with neg MRSA screen and after episode of extravasation
bronchodilators, taper steroids
Sputum Cx
Legionella and S.pneumonia urinary Ag neg
Bcx NTD
RSV, influenza PCR neg
Pulm consult
#Vanco extravasation in R hand
prompt hyaluronidase and warm compress
follow daily
#Adrenal insufficiency
#pulmonary HTN
#GERD
#RA
cont home meds
#Mild transaminitis
follow LFT
check hepatitis panel
most likely reactive 2/2 viral disease
#Hyponatremia
#Chronic LE edema
COnt lasix, follow and replete electrolytes
DVT ppx lovenox
Full code
I have spent at least 38min reviewing chart, test results, communication with consultants and direct patient care
Anticipated Discharge: > 48 hours
Subjective/Interval History
-
Date of Service: October 08, 2024
Objective Data
-
Labs:
Laboratory Results
10/08/24
06:10
WBC 22.0 H
Hgb 11.7 L
Hct 34.9 L
Plt Count 449 H
Sodium 134 L
Potassium 4.0
Chloride 97 L
Carbon Dioxide 33 H
BUN 25 H
Creatinine 0.4 L
Glucose 119 H
Calcium 8.4
Total Bilirubin 0.4
AST 46 H
ALT 38 H
Alkaline Phosphatase 76
Vital Signs:
Vital Signs
Temp Pulse Resp BP Pulse Ox
98.1 F 82 18 125/62 96
10/08/24 11:14 10/08/24 11:35 10/08/24 11:35 10/08/24 10:00 10/08/24 11:35
I&O
10/07/24 10/08/24 10/09/24
06:59 06:59 06:59
Intake Total 1270 / 1270 1545 / 1545
Output Total 840 / 840 1140 / 1140 1200 / 1200
Balance 430 / 430 405 / 405 -1200 / -1200
Review of Systems
-
History Source: Patient
All other systems: Reviewed and negative
Physical Exam
-
General: No Apparent Distress
HEENT: Normocephalic
Respiratory: Clear to Auscultation
Cardiac: Regular Rhythm
GI: Soft, Nontender and Nondistended
Skin: Warm and Other (redness and swelling gR hand)
Neuro: Awake, Alert, Oriented and AO x 3
Psych: Calm
[2024-10-08] MEDS: ProAIR HFA INHALER INH (15:44)
[2024-10-08 18:39] LABS: Hepatitis B Surface Antigen Negative (Negative)
[2024-10-08 18:58] LABS: Hepatitis B Core Ab, Total Negative (Negative); Hepatitis B Surface Antibody Negative; Hepatitis C Antibody Negative (Negative)
[2024-10-08] MEDS: LOVENOX 40 MG SC (21:17)
[2024-10-09] VITALS (15 sets, daily range): BP systolic 106–157; BP diastolic 52–76; PULSE 66–68; O2SAT 94; BMI 37.0
--- NOTE | 2024-10-09 02:03 | PTCARENOTE ---
Patient received from kamaljit RN. Pt LITAOx3, pleasant, making needs known. Pt NSR on monitor. satting 95% on 4L. using BSCx1 with use of own cane from home. slow and steady gait. Assessment as documented.
[2024-10-09] MEDS: MAXIPIME 2000 MG IV ×3 (05:33→21:45)
[2024-10-09] MEDS: STERILE WATER FOR INJECTION 10 ML IV ×3 (05:33→21:46)
[2024-10-09 06:32] LABS: % Basophils 0.2 % (0-2); % Immature Granulocytes 2.1 % (0-0.5); % Lymphocytes 6.6 % (20.5-51.1); % Monocytes 6.1 % (1.7-9.3); Absolute Immature Granulocytes 0.3 10^3/uL (0-0.05); Absolute Lymphocytes 0.9 10^3/uL (1.2-3.4); Absolute Monocytes 0.8 10^3/uL (0.1-0.6); Absolute Neutrophils 11.7 10^3/uL (1.4-6.5); Hematocrit 34.1 % (37.0-47.0); Hemoglobin 11.5 g/dL (12.0-16.0); Mean Corp Hgb Conc. 33.7 g/dL (33.0-37.0); Mean Corpuscular Hgb 27.5 pg (27.0-31.0); Mean Corpuscular Volume 81.6 fL (81.0-99.0); Mean Platelet Volume 9.5 fL (7.4-10.4); Nucleated Red Blood Cells % 0 %; Platelet Count 416 10^3/uL (130-400); Red Blood Cell Count 4.18 10^6/uL (4.20-5.40); Red Cell Dist. Width 14.2 % (11.5-14.5); White Blood Cell Count 13.8 10^3/uL (4.8-10.8)
--- NOTE | 2024-10-09 08:11 | W.PN.PUL3 ---
Today's Communication / Plan
-
Incentive spirometry, out of bed to chair, ambulate as able
Continue antibiotics for secondary bacterial infection
Remdesivir to be completed 10/10
Continue daily Decadron
Wean oxygen as able
Assessment
-
Assessment: 79-year-old male non-smoker with a past medical history of RA, chronic lower extremity edema, hypertension and obesity who presents with worsening SOB. Patient recently hospitalized from 09/28 - 10/03/2024 due to multifocal pneumonia
treated with antibiotics with Rocephin/doxycycline. She was discharged home with prednisone taper as well as budesonide and Tessalon Perles and told to resume his Trelegy. After discharge she felt okay for the first day but then started to have
worsening cough and weakness. Then 1 day prior to arrival she had chills with a dry cough and was saturating 83% on home pulse oximetry. Initially in the ER, she was febrile to 100.9 �F, pulse rate 98, breathing at 18 breaths/min, BP 123/56 and
saturating 88% on room air which improved to 90% on 3 L/min. Initial labs showed leukocytosis to 18.7, Hb 11.7, serum sodium 125, serum chloride 89, and COVID-19 antigen was positive. Flu swab was negative and RSV swab also negative. CXR shows
worsening bilateral multifocal pneumonia compared to recent CXR on 09/28/2024. In the ER she was given remdesivir, Solu-Medrol, DuoNebs, cefepime and admitted to the IMU. Pulmonary service consulted for additional management/recommendations.
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
Impression:
#Acute respiratory failure with hypoxia due to COVID-19 pneumonia with a bacterial superinfection
#Leukocytosis likely due to sepsis from above
#Chronic hyponatremia
#Hypophosphatemia
#Transaminitis with elevated AST
#Recent hospitalization with multifocal pneumonia treated with Rocephin/doxycycline s/p Zithromax x 1 dose
#RA on methotrexate
#History of hypertension
#Morbid obesity with BMI: 37.3
Plan/recommendations:
Overall, encouraged the patient is improved subjectively
Mild crackles noted on exam
Presently 98% on 3 L
Positive COVID status noted
Chest x-ray with persistent bilateral infiltrates
Moving forward
Continue with supportive care
Remains on cefepime/vancomycin for possible bacterial process
Remains on steroids, Decadron once a day
Remains on remdesivir, will discontinue after 5 days, last dose 10/10
Continue to hold methotrexate
Incentive spirometry, out of bed to chair as able
Attempts to wean oxygen therapy
Head of bed elevated, aspiration precautions
DVT ppx: LMWH
GI prophylaxis: Remains on pantoprazole
Pulmonary service will continue to follow along. Outpatient office follow-up will be arranged. Repeat imaging in 4 to 6 weeks should be obtained to follow-up for pneumonia resolution.
Data:
CXR 10/06/2024:
Severe bilateral multifocal pneumonia, slightly progressed compared to CXR on 09/28/2024
Subjective Data
-
Date of Service:
Date of Service: October 09, 2024
Subjective:
Patient relays slow improvement overall. Still with dry cough, denies chest pain, nausea, abdominal pain, hemoptysis. Remains on 3 L at this time. Negative fluid status noted
Objective Data
Data Reviewed
Vital Signs / I&O / Oxygen:
Vital Signs
Temp Pulse Resp BP Pulse Ox
97.8 F 75 21 152/76 92
10/09/24 07:31 10/09/24 06:00 10/09/24 06:00 10/09/24 06:00 10/09/24 06:00
Intake and Output
10/08/24 10/09/24 10/10/24
06:59 06:59 06:59
Intake Total 1545 / 1545 480 / 480
Output Total 1140 / 1140 1800 / 1800
Balance 405 / 405 -1320 / -1320
SaO2 92
Nasal Cannula flow liters per 4
minute
Physical Exam
General: Comfortable
HEENT: Normocephalic and Anicteric
Cardiovascular: S1-S2, Regular Rhythm, Murmur (n) and Rub (n)
Respiratory: Wheeze (n), Crackles (Bilateral scattered posteriorly), Rhonchi (n) and Non-Labored Respirations
GI: Soft, Non Distended and Non Tender
Neurology: Awake, Alert and No Motor Deficits
Skin: Cyanosis (n), Jaundice (n) and Rash (n)
Labs/Micro/Reports
Lab Data
10/09/24 05:42
Microbiology
10/06/24 14:16 Blood/Venous Blood Culture - Preliminary
No Growth in 48 hours- Final report to follow
10/06/24 14:16 Blood/Venous Blood Culture - Preliminary
No Growth in 48 hours- Final report to follow
10/06/24 15:39 Nose Nasal Screen MRSA (PCR) - Final
MRSA not detected - performed by PCR methodology.
10/06/24 16:48 Urine Legionella Urinary Antigen - Final
Negative for Legionella pneumophila Serogroup 1 antigen.
A negative result does not rule out the possiblity of
Legionella infection due to other serogroups or species of
Legionella. Clinical correlation is recommended.
10/06/24 16:48 Urine Streptococcus pneumoniae Antigen (M - Final
Negative for Streptococcus pneumoniae antigen.
A negative result does not exclude infection with
Streptococcus pneumoniae. Clinical correlation is
recommended.
10/06/24 11:02 Nasal Swab Influenza Types A & B (ELBA) - Final
Negative for Influenza A & B, NAAT
Negative results must be combined with clinical observations
and patient history.
Nucleic Acid Amplification test (NAAT)performed on the
[employer] platform.
10/06/24 11:02 Nasal Swab Respiratory Syncytial Virus Ag - Final
Negative for Respiratory Syncytial Virus.
A false negative result may be obtained with a specimen
collected early in the acute phase. If symptoms persist, a
new specimen should be tested.
[2024-10-09] MEDS: ProAIR HFA INHALER 2 PUFF INH ×4 (08:17→19:48)
[2024-10-09] MEDS: DECADRON 6 MG IV (09:21)
[2024-10-09] MEDS: NORVASC 5 MG PO ×2 (09:21→21:45)
[2024-10-09] MEDS: PROTONIX 40 MG PO (09:21)
[2024-10-09] MEDS: TOPROL XL 75 MG PO (09:21)
[2024-10-09] MEDS: MUCINEX 600 MG PO ×2 (09:21→21:45)
[2024-10-09] MEDS: LASIX 40 MG PO (09:21)
--- NOTE | 2024-10-09 11:11 | W.PN.HOSP.TC ---
Today's Communication/Plan
-
Home O2 assessment
SPutum Cx - to be sent today
Assessment / Plan
Assessment / Plan
79yo F with adrenal insufficiency on chronic steroids, HTN, COPD, GERD, RA on DMARD, recent admission for pneumonia, started with worsening cough on the day before admission. Found COVID-19 with hypoxia
A/P
#Acute COVID-19 with acute hypoxic respiratory failure and multifocal pneumonia
Wean O2 as possible
Steroids and Remdesivir started, follow LFT
With elevated procalcitonin - cont Abx. Recently completed Rocephin/DOxy, initially escalated to Cefepime/VAnco for possible HAP, Vanco then stopped with neg MRSA screen and after episode of extravasation
bronchodilators, taper steroids
Sputum Cx
Legionella and S.pneumonia urinary Ag neg
Bcx NTD
RSV, influenza PCR neg
Pulm consult
Home O2 assessment
#Vanco extravasation in R hand
resolved without complications
#Adrenal insufficiency
#pulmonary HTN
#GERD
#RA
cont home meds
#Mild transaminitis
follow LFT
hepatitis panel neg
most likely reactive 2/2 viral disease
#Hyponatremia
#Chronic LE edema
COnt lasix, follow and replete electrolytes
DVT ppx lovenox
Full code
I have spent at least 38min reviewing chart, test results, communication with consultants and direct patient care
Anticipated Discharge: 24 - 48 hours
Subjective/Interval History
-
Date of Service: October 09, 2024
Objective Data
-
Labs:
Laboratory Results
10/09/24 10/09/24
05:42 10:41
WBC 13.8 H
Hgb 11.5 L
Hct 34.1 L
Plt Count 416 H
Sodium Cancelled Pending
Potassium Cancelled Pending
Chloride Cancelled Pending
Carbon Dioxide Cancelled Pending
BUN Cancelled Pending
Creatinine Cancelled Pending
Glucose Cancelled Pending
Calcium Cancelled Pending
Total Bilirubin Cancelled Pending
AST Cancelled Pending
ALT Cancelled Pending
Alkaline Phosphatase Cancelled Pending
Vital Signs:
Vital Signs
Temp Pulse Resp BP Pulse Ox
98.0 F 68 21 131/61 95
10/09/24 11:07 10/09/24 10:00 10/09/24 10:00 10/09/24 10:00 10/09/24 10:00
I&O
10/08/24 10/09/24 10/10/24
06:59 06:59 06:59
Intake Total 1545 / 1545 480 / 480
Output Total 1140 / 1140 1800 / 1800
Balance 405 / 405 -1320 / -1320
Review of Systems
-
History Source: Patient
All other systems: Reviewed and negative
Physical Exam
-
General: No Apparent Distress
HEENT: Normocephalic
Respiratory: Clear to Auscultation
GI: Soft, Nontender and Nondistended
Musculoskeletal: No Clubbing, No Cyanosis and No Edema
Neuro: Awake, Alert, Oriented and AO x 3
Psych: Calm
[2024-10-09 11:12] LABS: ALT (SGPT) 40 U/L (0-35); AST (SGOT) 37 U/L (14-36); Albumin 3.1 g/dl (3.5-5.0); Alkaline Phosphatase 77 U/L (38-126); Blood Urea Nitrogen 28 mg/dl (7-17); Calcium 8.5 mg/dl (8.4-10.2); Carbon Dioxide 36 mmol/L (22-30); Chloride 94 mmol/L (98-107); Direct Bilirubin 0.2 mg/dl (0.0-0.4); Estimated Creatinine Clearance 86 ml/min; Glucose 199 mg/dl (70-99); Potassium 3.5 mmol/L (3.5-5.1); Sodium 134 mmol/L (135-145); Total Bilirubin 0.4 mg/dl (0.2-1.3); Total Protein 5.8 g/dl (6.3-8.2); eGFR > 60.00
--- NOTE | 2024-10-09 11:26 | CM ---
Addendum entered by Alana Alatorre 10/09/24 14:01:
CM spoke with patient via phone; she prefers to go home with VN/PT
Addendum entered by Alana Alatorre 10/09/24 13:52:
PT recommends home health services
Original Note:
Per Attending, patient may discharge tomorrow; PT/OT and home Oxygen assessments ordered
Plan: Possible discharge to home tomorrow; CM will monitor for needs/services
[2024-10-09] MEDS: VEKLURY 250 MG IV (11:31)
--- NOTE | 2024-10-09 17:51 | PTCARENOTE ---
Pt presents as assessed. OOB to chair throughout the day. Sating low to mid 90's on 3LMF. No acute events throughout the day, assessment and care as documented.
[2024-10-09] MEDS: LOVENOX 40 MG SC (21:45)
--- NOTE | 2024-10-09 22:00 | PTCARENOTE ---
Received pt at shift change. Pt AAOx3, no complaints of pain. Pt resting comfortably on 3L O2 NC, lungs diminished with crackles at the bases. NSR on the monitor. Remainder of assessment as documented. Pt updated on POC for the evening, states she
is looking forward to continuing her d/c planning in the AM.
[2024-10-10] VITALS (10 sets, daily range): BP systolic 117–164; BP diastolic 61–102; BMI 37.5
[2024-10-10] MEDS: STERILE WATER FOR INJECTION 10 ML IV ×2 (05:41→14:16)
[2024-10-10] MEDS: MAXIPIME 2000 MG IV ×2 (05:41→14:16)
[2024-10-10 05:57] LABS: % Basophils 0.3 % (0-2); % Eosinophils 0.1 % (0-6); % Immature Granulocytes 2.6 % (0-0.5); % Lymphocytes 7.8 % (20.5-51.1); % Monocytes 6.4 % (1.7-9.3); % Neutrophils 82.8 % (42.2-75.2); Absolute Immature Granulocytes 0.4 10^3/uL (0-0.05); Absolute Lymphocytes 1.1 10^3/uL (1.2-3.4); Absolute Monocytes 0.9 10^3/uL (0.1-0.6); Hematocrit 35.5 % (37.0-47.0); Hemoglobin 11.9 g/dL (12.0-16.0); Mean Corp Hgb Conc. 33.5 g/dL (33.0-37.0); Mean Corpuscular Hgb 27.2 pg (27.0-31.0); Mean Corpuscular Volume 81.1 fL (81.0-99.0); Mean Platelet Volume 9.7 fL (7.4-10.4); Nucleated Red Blood Cells % 0 %; Platelet Count 422 10^3/uL (130-400); Red Blood Cell Count 4.38 10^6/uL (4.20-5.40); Red Cell Dist. Width 14.1 % (11.5-14.5); White Blood Cell Count 14.5 10^3/uL (4.8-10.8)
[2024-10-10 06:24] LABS: ALT (SGPT) 42 U/L (0-35); AST (SGOT) 37 U/L (14-36); Albumin 2.9 g/dl (3.5-5.0); Alkaline Phosphatase 78 U/L (38-126); Blood Urea Nitrogen 26 mg/dl (7-17); Calcium 8.2 mg/dl (8.4-10.2); Carbon Dioxide 35 mmol/L (22-30); Chloride 97 mmol/L (98-107); Direct Bilirubin 0.1 mg/dl (0.0-0.4); Estimated Creatinine Clearance 87 ml/min; Glucose 107 mg/dl (70-99); Potassium 3.8 mmol/L (3.5-5.1); Sodium 134 mmol/L (135-145); Total Bilirubin 0.5 mg/dl (0.2-1.3); Total Protein 5.6 g/dl (6.3-8.2); eGFR > 60.00
[2024-10-10] MEDS: TESSALON PERLES 100 MG PO (08:12)
[2024-10-10] MEDS: PROTONIX 40 MG PO (08:12)
[2024-10-10] MEDS: MUCINEX 600 MG PO (08:12)
[2024-10-10] MEDS: NORVASC 5 MG PO (08:13)
[2024-10-10] MEDS: LASIX 40 MG PO (08:13)
[2024-10-10] MEDS: TOPROL XL 75 MG PO (08:13)
[2024-10-10] MEDS: DECADRON 6 MG IV (08:14)
[2024-10-10] MEDS: ProAIR HFA INHALER 2 PUFF INH ×3 (08:40→16:22)
[2024-10-10] MEDS: VEKLURY 250 MG IV (12:21)
--- NOTE | 2024-10-10 13:28 | W.PN.HOSP.TC ---
Today's Communication/Plan
-
CM for home O2
Assessment / Plan
Assessment / Plan
79yo F with adrenal insufficiency on chronic steroids, HTN, COPD, GERD, RA on DMARD, recent admission for pneumonia, started with worsening cough on the day before admission. Found COVID-19 with hypoxia and possible superimposed bacteria;l
pneumonia. Sputum Cx was not reliably done. Patient improved. Home O2 assessment showed that she needs 3L home O2. Participated in PT/OT and mendcially stable to be d/c home to complete course of oral Abx since Remdesivir completed on 10/10/24.
COntinue Decardon for total of 10 days, then cut down to her usual daily dose
A/P
#Acute COVID-19 with acute hypoxic respiratory failure and multifocal pneumonia
Wean O2 as possible
Steroids and Remdesivir started, follow LFT
With elevated procalcitonin - cont Abx. Recently completed Rocephin/DOxy, initially escalated to Cefepime/VAnco for possible HAP, Vanco then stopped with neg MRSA screen and after episode of extravasation
bronchodilators, taper steroids
Sputum Cx - mixed oropharyngeal anne
Legionella and S.pneumonia urinary Ag neg
Bcx NTD
RSV, influenza PCR neg
Pulm consult
Home O2 assessment
#Vanco extravasation in R hand
resolved without complications
#Adrenal insufficiency
#pulmonary HTN
#GERD
#RA
cont home meds
#Mild transaminitis
follow LFT
hepatitis panel neg
most likely reactive 2/2 viral disease
#Hyponatremia
#Chronic LE edema
COnt lasix, follow and replete electrolytes
DVT ppx lovenox
Full code
I have spent at least 38min reviewing chart, test results, communication with consultants and direct patient care
Anticipated Discharge: Within 24 hours
Subjective/Interval History
-
Date of Service: October 10, 2024
Objective Data
-
Labs:
Laboratory Results
10/10/24
05:39
WBC 14.5 H
Hgb 11.9 L
Hct 35.5 L
Plt Count 422 H
Sodium 134 L
Potassium 3.8
Chloride 97 L
Carbon Dioxide 35 H
BUN 26 H
Creatinine 0.4 L
Glucose 107 H
Calcium 8.2 L
Total Bilirubin 0.5
AST 37 H
ALT 42 H
Alkaline Phosphatase 78
Vital Signs:
Vital Signs
Temp Pulse Resp BP Pulse Ox
97.0 F 81 15 123/64 96
10/10/24 11:20 10/10/24 12:03 10/10/24 12:03 10/10/24 12:00 10/10/24 12:03
I&O
10/09/24 10/10/24 10/11/24
06:59 06:59 06:59
Intake Total 480 / 480 490 / 490
Output Total 1800 / 1800 1999 / 1999 700 / 700
Balance -1320 / -1320 -1999 / -1999 -210 / -210
Review of Systems
-
History Source: Patient
All other systems: Reviewed and negative
Physical Exam
-
General: No Apparent Distress
HEENT: Normocephalic
Respiratory: Clear to Auscultation
Neuro: Awake, Alert, Oriented and AO x 3
Psych: Calm
--- NOTE | 2024-10-10 13:56 | W.DCSUMMARY ---
Discharge Summary
Discharge Data
Date of Admission: 10/06/24
Date of Discharge: 10/10/24
-
Pending Results: No
Hospital Course
79yo F with adrenal insufficiency on chronic steroids, HTN, COPD, GERD, RA on DMARD, recent admission for pneumonia, started with worsening cough on the day before admission. Found COVID-19 with hypoxia and possible superimposed bacteria;l
pneumonia. Sputum Cx was not reliably done. Patient improved. Home O2 assessment showed that she needs 3L home O2. Participated in PT/OT and mendcially stable to be d/c home to complete course of oral Abx since Remdesivir completed on 10/10/24.
Continue tapering prednisone (long taper), then cut down to 10mg - Rx to be obtained from PCP due to concern for adrenal insufficiecny on last admission. Methotrexate held until patient to be seen by [employer] Produ[employer] Commission Agent. COmplete Cefdinir total 2 weeks
at home. Repeat imaging in 4-6 weeks,. patient verbalized understanding and agreement with instructions. Medically stable for d/c as CM arranged home O2.
I have spent at least 38min reviewing chart, test results, communication with consultants and direct patient care
Patient was managed for:
#Acute COVID-19 with acute hypoxic respiratory failure and multifocal pneumonia
#Vanco extravasation in R hand
#Adrenal insufficiency
#pulmonary HTN
#GERD
#RA
#Mild transaminitis
#Hyponatremia
#Chronic LE edema
Discharge Plan
-
Patient Disposition: Home with Home Care
Discharge Diagnosis/Procedures: COVID-19
Diet: Low Sodium
Activity: As tolerated
Driving Restrictions: As prior to admission
Others Tests: Repeat chest XR in 4-6 weeks to confirm resolution of the infection
Referrals:
Lefty Mayer MD [Active] - in one month
Kimmie Hagen MD [Family Provider] -
Additional Discharge Medication Instructions: Please obtain prescription for Prednisone 10mg with your PCP to start upon completion of Prednisone titration
Prescriptions:
New
prednisone 10 mg tablets,dose pack
See Rx Instructions .ROUTE .COMPLEX Qty: 48 0RF
Rx Instructions:
orally per package directions
cefdinir 300 mg capsule
300 mg PO BID Qty: 20 0RF
Continued
amlodipine [Norvasc] 5 mg Tablet
5 mg PO BID
folic acid 1 mg Tablet
2 mg PO DAILY
furosemide [Lasix] 20 mg Tablet
40 mg PO DAILY
metoprolol succinate [Toprol XL] 25 mg Tablet Extended Release 24 Hr
75 mg PO DAILY
ezetimibe [Zetia] 10 mg Tablet
10 mg PO DAILY
omeprazole 20 mg Tablet,Delayed Release (Dr/Ec)
40 mg PO DAILY
Trelegy Ellipta 100-62.5-25 mcg Blister With Device
1 inh INHALATION R DAILYPRN PRN (Reason: sob)
Patient Comments:
patient has free samples
benzonatate 100 mg Capsule
100 mg PO TIDPRN PRN (Reason: cough) 10 Days Qty: 30 0RF
budesonide 0.5 mg/2 mL suspension for nebulization
0.5 mg inhalation R BID
Held
methotrexate sodium 2.5 mg Tablet
10 mg PO MO
Hold Instructions: until seen by laboratory miller
Discontinued
prednisone 20 mg tablet
40 mg PO DAILY
Rx Instructions:
40 mg for 2 weeks then taper to 30 mg for 1 week and 20 mg for 1 week.
Discharge Orders:
Discharge Patient (As Directed); Ordered 10/10/24
Ordered By: Atilio Whatley
Discharge Date and Time
Print Language: BELIZEAN
--- NOTE | 2024-10-10 13:56 | CM ---
Patient with Dx Acute COVID-19, acute hypoxic respiratory failure, pneumonia. O2 3L. PT & OT recommend HH.
Met with patient who was preparing for d/c. She says she feels ready to go home today. IMM completed.
Patient agrees to a referral to [facility] for home O2 and understands she needs to wait here for portable to be delivered to her room, and she was made aware that the concentrator will be delivered to her home.
Patient is in agreement with [facility] .
Hr will provide transport home today.
[facility] notified of d/c via [facility] (fax [phone]). Request is for SN/PT/OT.
Spoke with [facility]; they will deliver home O2 concentrator and portable O2 to hospital today.
Plan home today with Home O2 via [facility], with [facility].
--- NOTE | 2024-10-10 15:48 | W.PN.PUL3 ---
Today's Communication / Plan
-
Complete 7 days of antibiotic
Oxygen supplementation
Outpatient radiographic follow-up
Sign off
Assessment
-
Assessment: 79-year-old male non-smoker with a past medical history of RA, chronic lower extremity edema, hypertension and obesity who presents with worsening SOB. Patient recently hospitalized from 09/28 - 10/03/2024 due to multifocal pneumonia
treated with antibiotics with Rocephin/doxycycline. She was discharged home with prednisone taper as well as budesonide and Tessalon Perles and told to resume his Trelegy. After discharge she felt okay for the first day but then started to have
worsening cough and weakness. Then 1 day prior to arrival she had chills with a dry cough and was saturating 83% on home pulse oximetry. Initially in the ER, she was febrile to 100.9 �F, pulse rate 98, breathing at 18 breaths/min, BP 123/56 and
saturating 88% on room air which improved to 90% on 3 L/min. Initial labs showed leukocytosis to 18.7, Hb 11.7, serum sodium 125, serum chloride 89, and COVID-19 antigen was positive. Flu swab was negative and RSV swab also negative. CXR shows
worsening bilateral multifocal pneumonia compared to recent CXR on 09/28/2024. In the ER she was given remdesivir, Solu-Medrol, DuoNebs, cefepime and admitted to the IMU. Pulmonary service consulted for additional management/recommendations.
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
Impression:
#Acute respiratory failure with hypoxia due to COVID-19 pneumonia with a bacterial superinfection
#Leukocytosis likely due to sepsis from above
#Chronic hyponatremia
#Hypophosphatemia
#Transaminitis with elevated AST
#Recent hospitalization with multifocal pneumonia treated with Rocephin/doxycycline s/p Zithromax x 1 dose
#RA on methotrexate
#History of hypertension
#Morbid obesity with BMI: 37.3
Plan/recommendations:
Overall clinically improved
For discharge planning today
Agree with discharge planning
for possible bacterial process complete 7 days of antibiotic remains on steroids, Decadron once a day
Completed remdesivir, after 5 days, last dose 10/10
Continue to hold methotrexate-May restart in the outpatient setting.
Incentive spirometry, out of bed to chair as able-should continue at home.
DVT ppx: LMWH
GI prophylaxis: Remains on pantoprazole
Outpatient office follow-up will be arranged. Repeat imaging in 4 to 6 weeks should be obtained to follow-up for pneumonia resolution.
Agree with discharge planning
Sign off
Data:
CXR 10/06/2024:
Severe bilateral multifocal pneumonia, slightly progressed compared to CXR on 09/28/2024
Subjective Data
-
Date of Service:
Date of Service: October 10, 2024
Chief Complaint: Pulmonary Follow Up (Hypoxemic respiratory failure/pneumonia)
Subjective:
No new complaints
For discharge today
Objective Data
Data Reviewed
Vital Signs / I&O / Oxygen:
Vital Signs
Temp Pulse Resp BP Pulse Ox
97.0 F 60 21 121/74 96
10/10/24 11:20 10/10/24 14:00 10/10/24 14:00 10/10/24 14:00 10/10/24 12:03
Intake and Output
10/09/24 10/10/24 10/11/24
06:59 06:59 06:59
Intake Total 480 / 480 815 / 815
Output Total 1800 / 1800 1999 / 1999 1400 / 1400
Balance -1320 / -1320 -1999 / -2000 -585 / -585
SaO2 96
Nasal Cannula flow liters per 3
minute
Physical Exam
General: Comfortable
HEENT: Normocephalic and Anicteric
Cardiovascular: S1-S2, Regular Rhythm, Murmur (n) and Rub (n)
Respiratory: Wheeze (n), Crackles (Bilateral scattered posteriorly), Rhonchi (n) and Non-Labored Respirations
GI: Soft, Non Distended and Non Tender
Neurology: Awake, Alert and No Motor Deficits
Skin: Cyanosis (n), Jaundice (n) and Rash (n)
Labs/Micro/Reports
Lab Data
10/10/24 05:39
10/10/24 05:39
Microbiology
10/06/24 14:16 Blood/Venous Blood Culture - Preliminary
No Growth in 4 days- Final report to follow
10/06/24 14:16 Blood/Venous Blood Culture - Preliminary
No Growth in 4 days- Final report to follow
10/09/24 10:41 Sputum Respiratory Culture - Final
10/09/24 10:41 Sputum Gram Stain - Final
== END 2024-10-10 17:52 | disposition home health service (06) | DRG 871 ==
LOC: IMU 14:33
PROVIDERS: Clinical Nurse Specialist Family Health; Physician Assistant; ADMITTING PHYSICIAN Internal Medicine; ATTENDING PHYSICIAN Internal Medicine; CONSULT PHYSICIAN Internal Medicine Critical Care Medicine; EMERGENCY PHYSICIAN Emergency Medicine; FAMILY PHYSICIAN Family Medicine
PROC: XW033E5 Introduction of Remdesivir Anti-infective into Peripheral Vein, Percutaneous Approach, New Technology Group 5 (ICD-10-PCS; 2024-10-06)
DX: A41.89 Other specified sepsis (principal); J12.82 Pneumonia due to coronavirus disease 2019; U07.1 COVID-19; J96.01 Acute respiratory failure with hypoxia; E27.40 Unspecified adrenocortical insufficiency; E87.1 Hypo-osmolality and hyponatremia; M06.9 Rheumatoid arthritis, unspecified; I10 Essential (primary) hypertension; E66.01 Morbid (severe) obesity due to excess calories; Z68.37 Body mass index [BMI] 37.0-37.9, adult; Z79.51 Long term (current) use of inhaled steroids; I27.20 Pulmonary hypertension, unspecified; K21.9 Gastro-esophageal reflux disease without esophagitis
CPT/HCPCS: 71046; 80053; 81003; 81015; 82248; 83605; 83735; 83930; 83935; 84100; 84145; 84300; 84484; 85025; 85610; 86704; 86706; 86803; 87040; 87205; 87340; 87449; 87502; 87641; 87807; 87811; 87899; 93005; 94640; 97163; 97167; 99285; J0248

== ENCOUNTER → 2024-10-26 14:46 | Outpatient (REF) | payer OTHER, SELFPAY | LOC: HWRAD 14:46 | PROVIDERS: ATTENDING PHYSICIAN Family Medicine; REFERRING PHYSICIAN Internal Medicine Critical Care Medicine | DX: J12.89 Other viral pneumonia (principal); U09.9 Post COVID-19 condition, unspecified | CPT/HCPCS: 71046 ==

== ENCOUNTER → 2024-11-10 10:47 | Outpatient (REF) | payer OTHER, SELFPAY | LOC: DHSLP 10:47 | PROVIDERS: ATTENDING PHYSICIAN Internal Medicine Critical Care Medicine | DX: G47.33 Obstructive sleep apnea (adult) (pediatric) (principal) | CPT/HCPCS: 95800 ==

== ENCOUNTER → 2024-11-20 13:04 | Outpatient (REF) | payer OTHER, SELFPAY | LOC: HWRAD 13:04 | PROVIDERS: ATTENDING PHYSICIAN Nurse Practitioner Adult Health; FAMILY PHYSICIAN Family Medicine | DX: U07.1 COVID-19 (principal); J12.82 Pneumonia due to coronavirus disease 2019 | CPT/HCPCS: 71046 ==

== ENCOUNTER → 2024-12-22 10:35 | Outpatient (REF) | payer OTHER, SELFPAY | LOC: HWRAD 10:35 | PROVIDERS: ATTENDING PHYSICIAN Family Medicine | DX: Z87.01 Personal history of pneumonia (recurrent) (principal); Z86.16 Personal history of COVID-19 | CPT/HCPCS: 71046 ==

== ENCOUNTER → 2025-01-19 15:04 | Outpatient (REF) | payer OTHER, SELFPAY | LOC: HWRAD 15:04 | PROVIDERS: ATTENDING PHYSICIAN Internal Medicine Critical Care Medicine; FAMILY PHYSICIAN Family Medicine | DX: J98.4 Other disorders of lung (principal) | CPT/HCPCS: 71250 ==

== ENCOUNTER 2025-01-26 10:16 | Emergency (ER) | payer OTHER, SELFPAY ==
[2025-01-26 10:19] VITALS: BP 167/87
[2025-01-26 11:22] VITALS: BP 132/66
--- NOTE | 2025-01-26 12:00 | ED.GENMED ---
History of Present Illness
General
Chief Complaint: Cough
Source: patient
Time Seen by Provider: 01/26/25 11:44
History of Present Illness
History of Present Illness:
79-year-old female with past medical history of hypertension, hyperlipidemia, recent pneumonia in September presenting to the emergency department for evaluation of a cough productive of a yellow sputum over the last 3 to 4 days, initially started as
a sore throat and left-sided otalgia/fullness sensation, no associated fevers. Patient states that she has been having coughing spasms, today in the morning was worse prompting her to come to the ER. Patient was mostly concerned because her last
time she dealt with this infection she had to be hospitalized for her pneumonia. She does report that she recently had a CT scan of the chest as part of follow up from the pneumonia at the request of pulmonology and reports that the CT scan did
not show any abnormalities. Patient does report that she did a home COVID and flu test yesterday which was negative. No known sick contacts or recent travel, no recent antibiotics.
Past History
Past History
ED Past Medical History: HTN, Hypercholesterolemia and Other (Rheumatoid arthritis)
ED Past Surgical History: Appendectomy
Social History
Tobacco: Non-smoker
Alcohol: None
Drug: None
Personal:
Living: with family
Review of Systems
Review of Systems
All Other Systems: ROS reviewed and negative except as documented in HPI and ROS
Phy Exam
Physical Exam
Physical Exam:
GENERAL: Alert , in no apparent distress
EYE: conjunctiva clear
NECK: Supple, no significant adenopathy.
ENT: o/p clr, mmm.
CARDIAC: Regular rate and rhythm
LUNGS: Crackles at the bases bilaterally, more pronounced on the left, no acute respiratory distress, no wheezes/rhonchi
NEUROLOGICAL: Alert and oriented
SKIN: Warm and dry, skin intact.
MUSCULOSKELETAL: well perfused. No edema
PSYCH: Normal and appropriate interaction.
Scores
Heart Failure Risk
Heart Failure Risk Score: Not Applicable
Heart Score for Chest Pain Patients
STEMI patient?: Not applicable
Withdrawal Assessment of Alcohol
Withdrawal Assessment Completed?: Not applicable
Course
Orders/Labs/Results
Orders:
Orders
01/26/25 12:00
CR Chest - 2 Views Urgent
Comment:
Reason For Exam: cough x 4 days
Vital Signs
Initial and Last Documented VS:
Initial Vital Signs
Temp Pulse Resp BP Pulse Ox
97.6 F 72 20 167/87 97
01/26/25 10:19 01/26/25 10:19 01/26/25 10:19 01/26/25 10:19 01/26/25 10:19
Last Documented Vital Signs
Temp Pulse Resp BP Pulse Ox
97.6 F 71 18 154/75 96
01/26/25 10:19 01/26/25 13:31 01/26/25 13:31 01/26/25 13:05 01/26/25 13:15
MDM/Problems Addressed
Differential Diagnosis Includes:
Viral syndrome, pneumonia, asthma/COPD, bronchitis, CHF, sinusitis, otitis media
MDM/Problems Addressed:
79-year-old female presenting to the ER for evaluation of cough for the last 3 to 4 days, productive yellow sputum, no fevers. Recent admission at the beginning of the year for pneumonia. Recently had CT scan done for follow-up of this pneumonia
which was reportedly negative. Patient does note that when she had the CT scan she was asymptomatic. She is hemodynamically stable here, no acute respiratory distress. Patient is immunocompromised as she does take prednisone and methotrexate for
her rheumatoid arthritis. Will obtain chest x-ray now, will likely initiate patient on antibiotic given her immunocompromise status. Will need follow-up with primary care provider. She already does have an inhaler and nebulizer machine at home to
be used as needed
Chronic conditions affecting care: Immunosuppressed
*Radiology
Radiology exam reviewed: preliminary read by ED provider (normal CXR) and radiology read reviewed
*Pulse Oximetry
Patient hypoxic: no
*Critical Care Note
Total Time (30-74mins, 75-104mins- exclusive of procedures): Not Applicable
Data Reviewed
Review of Other/Old Records Reveals: Records and Radiology Studies
Patient Management
Escalation/DeEscalation of care consider admission/obs:
Patient's chest x-ray appears unremarkable, radiology was concerned with some vascular congestion patient does not present as volume overloaded. Will prescribe cefdinir and Zithromax to cover for community-acquired pneumonia given patient's
immunocompromise state. Encourage close follow-up with primary care provider. Aware of return precautions to the ER.
ED Attending Note
-
Portions of this chart may have been created with voice recognition software.� Occasional wrong word or��sound alike� substitutions may have occurred due to the inherent limitations of voice recognition software.
Discharge Plan
Departure
Patient Disposition: Home (Routine Discharge)
Date of Disposition: 01/26/25
Time of Disposition: 13:24
Patient with high blood pressure during this ER visit?: Yes
Discharge Problem:
Cough
Instructions: Cough, Adult (DC)
Prescriptions:
New
cefdinir 300 mg capsule
300 mg PO BID 7 Days Qty: 14 0RF
azithromycin [Zithromax Z-Abdifatah] 250 mg tablet
See Rx Instructions .ROUTE .COMPLEX 6 Days Qty: 6 0RF
Rx Instructions:
Take 2 tabs PO day 1 and 1 tab PO remaining 4 days
No Action
amlodipine [Norvasc] 5 mg Tablet
5 mg PO BID
methotrexate sodium 2.5 mg Tablet
10 mg PO MO
folic acid 1 mg Tablet
2 mg PO DAILY
furosemide [Lasix] 20 mg Tablet
40 mg PO DAILY
metoprolol succinate [Toprol XL] 25 mg Tablet Extended Release 24 Hr
75 mg PO DAILY
ezetimibe [Zetia] 10 mg Tablet
10 mg PO DAILY
omeprazole 20 mg Tablet,Delayed Release (Dr/Ec)
40 mg PO DAILY
Trelegy Ellipta 100-62.5-25 mcg Blister With Device
1 inh INHALATION R DAILYPRN PRN (Reason: sob)
Patient Comments:
patient has free samples
benzonatate 100 mg Capsule
100 mg PO TIDPRN PRN (Reason: cough) 10 Days Qty: 30 0RF
budesonide 0.5 mg/2 mL suspension for nebulization
0.5 mg inhalation R BID
prednisone 10 mg tablets,dose pack
See Rx Instructions .ROUTE .COMPLEX Qty: 48 0RF
Rx Instructions:
orally per package directions
cefdinir 300 mg capsule
300 mg PO BID Qty: 20 0RF
Referrals:
Kimmie Hagen MD [Primary Care Provider] -
Interventions
Interventions:
*Risk Screen - Suicide Last Done: 01/26/25 10:19
*General Assessment Last Done: 01/26/25 10:19
*Neglect/Abuse Screening Last Done: 01/26/25 10:19
*ED- Fall Risk Assessment Last Done: 01/26/25 11:24
*ED COVID-19 Vaccine History Last Done: 01/26/25 11:24
*Nursing Disposition Last Done: 01/26/25 13:34
ED- Pulmonary Assessment Last Done: 01/26/25 11:24
Discharge Date and Time
Discharge Date/Time: 01/26/25 13:43
Print Language: MALAGASY
[2025-01-26 13:05] VITALS: BP 154/75
== END 2025-01-26 13:43 | disposition home or self-care (01) ==
LOC: EMR 10:16
PROVIDERS: EMERGENCY PHYSICIAN Emergency Medicine; PRIMARYCARE PHYSICIAN Family Medicine
DX: R05.9 Cough, unspecified (principal); I10 Essential (primary) hypertension; E78.00 Pure hypercholesterolemia, unspecified; M06.9 Rheumatoid arthritis, unspecified; Z79.52 Long term (current) use of systemic steroids
CPT/HCPCS: 99283; 71046

== ENCOUNTER → 2025-07-09 12:07 | Outpatient (REF) | payer OTHER, SELFPAY | LOC: HWRAD 12:07 | PROVIDERS: ATTENDING PHYSICIAN Family Medicine | DX: R05.9 Cough, unspecified (principal) | CPT/HCPCS: 71046 ==

== ENCOUNTER → 2025-09-01 10:41 | Outpatient (REF) | payer OTHER, SELFPAY | LOC: HWRAD 10:41 | PROVIDERS: ATTENDING PHYSICIAN Student in an Organized Health Care Education/Training Program | DX: M05.79 Rheumatoid arthritis with rheumatoid factor of multiple sites without organ or systems involvement (principal); M75.42 Impingement syndrome of left shoulder; S46.812A Strain of other muscles, fascia and tendons at shoulder and upper arm level, left arm, initial encounter | CPT/HCPCS: 73030 ==